=== PATIENT | female | born 1940 | race Caucasian/White ===

== ENCOUNTER 2016-08-01 17:20 | Inpatient (IN) ==
[2016-08-01] MEDS ORDERED: DILAUDID IV ONE (18:27)
[2016-08-01] MEDS ORDERED: ZOFRAN IV ONE ×2 (18:32→20:30)
--- NOTE | 2016-08-01 18:33 | PROVIDER DOCUMENTATION ---
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 States she was getting out of the bed and lost balance, falling, landing on the right hip and hitting the right head. Most pain in the right hip, but has a minor headache and neck pain. Denies loc, not on any blood thinners. Denies abdominal pain, n/v /d. pain in the right hip is severe and is not able to move the right leg. Review of Systems - Adult - REVIEW OF SYSTEMS - ADULT Constitutional: reports: no symptoms reported. denies: chills, fever, fatique Eyes: reports: no symptoms reported. denies: decreased vision, blurred vision, double vision, eye pain Ears, Nose, Mouth & Throat: reports: no symptoms reported. denies: ear pain, nose pain, throat pain Cardiovascular: reports: no symptoms reported. denies: chest pain, palpitations Respiratory: reports: no symptoms reported. denies: cough, shortness of breath , wheezing Gastrointestinal: reports: no symptoms reported. denies: abdominal pain, diarrhea, nausea, vomiting Genitourinary: reports: no symptoms reported. denies: dysuria, discharge, frequency, incontinence Musculoskeletal: reports: see HPI, bone pain, back pain, joint pain, muscle aches Integumentary: reports: no symptoms reported. denies: rash Neurological: reports: no symptoms reported. denies: headache/migraines Psychiatric: reports: no symptoms reported Endocrine: reports: no symptoms reported Hematologic/Lymphatic: reports: no symptoms reported Allergic/Immunologic: reports: no symptoms reported All Other Systems: Reviewed and Negative Past History - Adult - PAST MEDICAL HISTORY-ADULT Review of Records: reports: Old Records Reviewed, Nursing Assessment Review, Medications Reviewed Major Childhood Illnesses: reports: denies history Cardiovascular: reports: HTN Respiratory: reports: denies history Gastrointestinal: reports: denies history Obstetrical/Gynecological: reports: denies history Genitourinary: reports: denies history Musculoskeletal: reports: fibromyalgia Neurological: reports: denies history Psychiatric: reports: depression Endocrine/Immune: reports: denies history Other Conditions: reports: denies history - PRIOR SURGERIES/PROCEDURES Surgical/Procedure History: reports: hysterectomy - IMMUNIZATION STATUS Childhood Immunizations: See Nurse Assessment Flu Vaccine: See Nurse Assessment - FAMILY HISTORY Family History: reviewed, not pertinent - SOCIAL HISTORY Smoking: denies Substance Use: none/never Alcohol Use Frequency: never Physical Exam-Injury Related - Physical Exam-Injury Related Initial Vital Signs Reviewed: Yes General Appearance: appears well, alert, mild distress Eyes: PERRL/EOMI, pink conjunctivae Head, Ears, Nose, Mouth & Throat: normocephalic/atraumatic, moist mucous membranes, normal ENT inspection Neck: non-tender, full range of motion, supple, normal inspection. negative: C- spine tenderness Respiratory: chest non-tender, lungs clear, normal breath sounds, no pleuratic chest pain, no respiratory distress, no accessory muscle use. negative: respiratory distress, decreased breath sounds, accessory muscle use, crackles, rales, rhonchi, stridor, wheezing Cardiovascular: normal peripheral pulses, regular rate, rhythm Peripheral Pulses: radial (R): 2+, radial (L): 2+, dorsalis-pedis (R): 2+, dorsalis-pedis (L): 2+ Abdominal Exam: normal bowel sounds, non tender, soft, no organomegaly, no pulsatile mass. negative: abdominal bruit, abnormal bowel sounds, distended, guarding, rigid, rebound, tenderness Extremity: tenderness, other (Right hip ttp, in pelvic binder from EMS) Neurologic: grossly normal, no motor/sensory deficits Psych/Mental Status: normal mood/affect, normal thought content, normal thought process, oriented x 3 - Glascow Coma Score Best Eye Response ([place]): (4) open spontaneously Best Verbal Response ([place]): (5) oriented Best Motor Response ([place]): (6) obeys commands Progress - PLAN OF CARE/RESULTS Progress/Plan/Lab Results: Vital Signs - 8 hr 08/01/16 17:34 08/01/16 17:47 08/01/16 17:58 Temperature 98.9 F Pulse Rate 87 85 Respiratory Rate 18 18 Blood Pressure 173/67 173/67 165/87 O2 Sat by Pulse Oximetry 95 95 97 08/01/16 18:42 08/01/16 21:36 Temperature Pulse Rate 78 Respiratory Rate Blood Pressure 175/95 145/78 O2 Sat by Pulse Oximetry 93 L Laboratory Results - last 24 hr 08/01/16 08/01/16 08/01/16 17:50 20:23 20:43 WBC Cancelled RBC Cancelled Hgb Cancelled Hct Cancelled MCV Cancelled MCH Cancelled MCHC Cancelled RDW Std Deviation Cancelled Plt Count Cancelled MPV Cancelled Immature Gran % (Auto) Cancelled Neut % (Auto) Cancelled Lymph % (Auto) Cancelled [place] % (Auto) Cancelled Eos % (Auto) Cancelled Baso % (Auto) Cancelled Immature Gran # (Auto) Cancelled Neut # (Auto) Cancelled Lymph # (Auto) Cancelled [place] # (Auto) Cancelled Eos # (Auto) Cancelled Baso # (Auto) Cancelled Corrected WBC (Man) Cancelled POC Glucose 115 H Urine Source CATH Urine Color YELLOW Urine Turbidity CLEAR Urine pH 6.5 Ur Specific [place] 1.021 Urine Protein TRACE A Ur Glucose (Stick) NEGATIVE Ur Ketones (Stick) NEGATIVE Urine Blood NEGATIVE Urine Nitrite NEGATIVE Urine Bilirubin NEGATIVE Urobilinogen Dipstick NORMAL Urine Leukocytes NEGATIVE Urine WBC (Auto) <10 Urine RBC (Auto) <10 U Epithel Cells (Auto) <10 Urine Bacteria (Auto) NEGATIVE Orders Category Date Time Status FSBS [Finger Stick Blood Sugar (ED)] DIRECTED Care 08/01/16 17:53 Active Mckeon Cath Insertion ORDERED Care 08/01/16 19:45 Active HEAD/C-SPINE W/O CONTRAST [CT] Stat Exams 08/01/16 18:26 Completed LUMBAR SPINE W/O CONTRAST [CT] Stat Exams 08/01/16 18:26 Completed PELVIS W/O CONTRAST [CT] Stat Exams 08/01/16 18:26 Completed CBC WITH DIFF [HEME] Routine Lab 08/01/16 20:54 Ordered COMPREHENSIVE METABOLIC PANEL [CHEM] Routine Lab 08/01/16 20:54 Ordered PROTIME WITH INR [COAG] Stat Lab 08/01/16 21:57 Ordered PTT [COAG] Stat Lab 08/01/16 21:57 Ordered TYPE & SCREEN [BBK] Stat Lab 08/01/16 21:57 Ordered UA Reflex [URINALYSIS W/POSS RFLX CULT] [URINALYSIS] Lab 08/01/16 20:23 Completed Stat Carbidopa/Levodopa [Sinemet 25/100] Med 08/02/16 09:00 Active 1 each PO BID Cyclobenzaprine [Flexeril] Med 08/02/16 09:00 Active 10 mg PO TID Donepezil [Aricept] Med 08/02/16 09:00 Active 10 mg PO DAILY Escitalopram [Lexapro] Med 08/02/16 09:00 Active 20 mg PO DAILY Hydromorphone [Dilaudid] Med 08/01/16 18:27 Discontinued 1 mg IV NOW ONE Meclizine [Antivert] Med 08/02/16 21:00 Active 25 mg PO QHS Melatonin Med 08/02/16 21:00 Active 10 mg PO QHS Ondansetron [Zofran] Med 08/01/16 18:32 Discontinued 4 mg IV NOW ONE Ondansetron [Zofran] Med 08/01/16 20:30 Discontinued 4 mg IV NOW ONE EKG [EKG] Stat Ther 08/01/16 17:52 Ordered Transfer/Admit Order [TRANSFER] Routine Transfer 08/01/16 21:41 Ordered Result Diagrams: 08/01/16 20:43 - CT/MRI 1 CT Study: Cervical Spine, Head Impression: Normal (NAD per radiology), See EMR Report 2 CT Study: Lumbar Spine Impression: Normal (NAD per radiology) 3 CT Study: Pelvis Impression: Abnormal (right femoral neck fracture with old sacral insufficiency fractures. per Dr. Scott, radiology) - CONSULTS/PCP/HOSPITALIST Notification #1 *Consult/PCP/Hospitalist*: Dr. Khan, [facility] Time Discussed: 20:14 Reason/Comments: right femoral neck fracture, pelvic insufficiency fractures Consult Disposition: Admit (admit to hospitalist, will pass off care to DOC in the morning) #2 Consult: Dr. Lazcano, hospitalist Time Discussed: 20:19 Reason/Comments: right femoral neck fracture Consult Disposition: Admit (Admit, Dr. Mccarthy is PCP) Departure - Departure Time of Disposition Decision: 19:50 DIAGNOSIS: Femoral neck fracture Qualifiers: Encounter type: initial encounter Fracture type: closed Laterality: right Qualified Code(s): S72.001A - Fracture of unspecified part of neck of right femur, initial encounter for closed fracture Disposition: ADMITTED INPATIENT 09 Certified Medical Emergency: Emergent Condition: Stable Referrals and Follow-Ups: Joanne Mccarthy MD [Primary Care Provider] - Attestation - Physician/ KEYSHAWN Attestation Patient care was provided by Advanced Practice Provider:: Yes Advanced Practice Provider:: Brittaney Celestin Advanced Practice Provider documentation review:: The Mid-level provider documentation, treatment plan and medical decision making was reviewed by the physician who agrees with all treatment and medical decision making by the MLP.
--- NOTE | 2016-08-01 20:07 | Diag Imaging Result Document ---
PROCEDURE NAME: HEAD/C-SPINE W/O CONTRAST - 08/01/2016 CT OF THE HEAD WITHOUT CONTRAST: FINDINGS: There is no evidence of mass effect, bleed, or abnormal extra-axial fluid collection. Compared to 01/13/2016, there has been no significant change in the appearance of the brain. The visualized paranasal sinuses are clear. There is no evidence of acute bony abnormality. IMPRESSION: No evidence of acute intracranial disease. CT OF THE CERVICAL SPINE WITHOUT CONTRAST.: FINDINGS: There is no evidence of prevertebral soft tissue swelling, fracture or subluxation. The facets appear to be well aligned. There is some facet arthropathy at the C2-3 level on the left. There is narrowing of the intervertebral disk at C5-6. There is curvature of the cervical spine with convexity to the right. There is bilateral apical pleural thickening. IMPRESSION: No evidence of acute bony disease.
--- NOTE | 2016-08-01 20:08 | Diag Imaging Result Document ---
PROCEDURE NAME: LUMBAR SPINE W/O CONTRAST - 08/01/2016 CT OF THE LUMBAR SPINE: FINDINGS: There is some disk space narrowing and posterior disk bulge at L3-4. There is accentuated lordosis of the lumbar spine. There are severe hypertrophic facet changes at the L3-4 level bilaterally. No evidence of acute fracture or subluxation is present. There is fibrosis and/or atelectasis in both lung bases. IMPRESSION: No evidence of acute bony disease.
--- NOTE | 2016-08-01 20:09 | Diag Imaging Result Document ---
PROCEDURE NAME: PELVIS W/O CONTRAST - 08/01/2016 CT OF THE BONY PELVIS: FINDINGS: There is evidence of a chronic insufficiency fracture of the left sacral ala with some sclerosis and there is probably also a similar fracture on the right side, also with sclerosis anteriorly and inferiorly near the sacroiliac joint. There is a right femoral neck fracture. IMPRESSION: 1. Osteoporosis with probable old sacral insufficiency fractures. 2. Right femoral neck fracture.
[2016-08-01 20:52] LABS: URINE CULTURE NEEDED? NO; URINE MICRO REVIEW NEEDED? NO
[2016-08-01 21:01] LABS: BILIRUBIN URINE NEGATIVE (NEGATIVE); BLOOD URINE NEGATIVE (NEGATIVE); COLOR YELLOW; GLUCOSE URINE NEGATIVE (NEGATIVE); LEUKOCYTES URINE NEGATIVE (NEGATIVE); NITRITE URINE NEGATIVE (NEGATIVE); PH URINE 6.5; PROTEIN URINE TRACE mg/dL (NEGATIVE); SP GRAVITY URINE 1.021; TURBIDITY URINE CLEAR (CLEAR); UR EPITHELIAL CELLS <10 /HPF (<10); URINE BACTERIA NEGATIVE /HPF; URINE RBC <10 /HPF (<10); URINE WBC <10 /HPF (<10); UROBILINOGEN URINE NORMAL (NORMAL)
[2016-08-01 21:02] LABS: URINE SOURCE CATH
[2016-08-01 22:45] LABS: BASO% 0.1 % (0.0-0.8); EOS# 0.08 X1000 (0.0-0.7); EOS% 0.7 % (0.0-10.0); HEMOGLOBIN 12.7 g/dL (12.0-16.0); IMM GRAN# 0.02 X1000 (0.0-0.04); IMM GRAN% 0.2 % (0.0-0.5); LYMPH# 0.65 X1000 (1.2-3.4); LYMPH% 5.3 % (20.5-51.1); MANUAL DIFF NEEDED? YES; MCH 30.2 PG (27-31); MCHC 34.3 g/dL (33-37); MCV 87.9 FL (81-99); MONO# 0.58 X1000 (0.11-0.59); MONO% 4.7 % (1.7-9.3); MPV 10.7 FL (7.4-10.4); PLT 280 X1000 (130-400); RBC 4.21 XMIL (4.2-5.4)
--- NOTE | 2016-08-01 22:47 | HISTORY AND PHYSICAL ---
This dictation is for Dr. Freddie Lazcano hospitalist. PRIMARY CARE PROVIDER: Dr. Sterlign Mccarthy. CHIEF COMPLAINT: Fall with hip injury. HISTORY OF PRESENT ILLNESS: A 75-year-old female, who is on [facility], has Parkinson's and dementia, was getting out of bed, lost her balance and fell landing on her right hip and also hitting her head. She has the most pain in the right hip, minor headache and some neck pain on arrival. Denies loss of consciousness. Is not any type of blood thinners. The patient also is oriented only to person, related to her dementia. Daughter is at bedside, but she is a poor historian. A CT of her head was read as NAD, lumbar spine NAD, and pelvis showed a right femoral neck fracture. Dr. Khan from [facility] was consulted, and we will admit the patient to the surgical floor for further evaluation and treatment. PAST MEDICAL HISTORY: 1. Parkinson's. 2. Dementia. 3. Anxiety. 4. Fibromyalgia. 5. Rheumatoid arthritis. 6. Sjgren's syndrome. 7. Temporomandibular joint disease. 8. Mild carotid artery disease. PREVIOUS SURGICAL HISTORY: 1. Tonsillectomy in 1969. 2. Oral surgery with bone graft in 1986. 3. Benign cyst of the right breast in 1986. 4. Hysterectomy in 1989. SOCIAL HISTORY: Lives at home with her of 35 years, has 1 daughter at the bedside. Did apparently use tobacco and alcohol, but has not in the past 35 years. No illicit drug use. FAMILY HISTORY: The patient has a sister with high blood pressure. Brother who from a cerebral hemorrhage at age 49. Her mother at age 87 of a CVA. ALLERGIES: Sulfa and phenobarbital. HOME MEDICATIONS: 1. Lexapro 20 mg p.o. daily. 2. Meclizine 25 mg p.o. at bedtime. 3. Protonix 40 mg p.o. daily. 4. Melatonin 2 mg p.o. at bedtime. 5. Aricept 10 mg p.o. daily. 6. Flexeril 10 mg p.o. t.i.d. 7. Carbidopa levodopa 25/100. 8. Aleve 220 p.o. q.6 p.r.n. 9. Tylenol 1000 mg p.o. q.6 p.r.n. REVIEW OF SYSTEMS: Fourteen point review of systems unable to be obtained, related to the patient's mental status. She does have complaint of right hip pain. Denies all other symptoms. PHYSICAL EXAMINATION: VITAL SIGNS: Chronic vent temp 98.9, pulse 94, respirations 18, blood pressure 145/78, oxygen saturation 97% on room air. GENERAL: Chronically ill-appearing 75-year-old female, lying in the ER stretcher, oriented only to person. Daughter is at bedside. HEENT: Head is atraumatic, normocephalic. Pupils equal, round, reactive to light. Extraocular eye movement is intact. Sclerae is anicteric. Conjunctivae is not pale. Oral mucosa is dry. NECK: Supple. No JVD. No thyromegaly. Trachea is midline. No cervical lymphadenopathy. CARDIAC: S1-S2 appreciated. Regular rate. No murmurs, gallops or rubs. LUNGS: Clear to auscultation bilaterally. No rhonchi, wheezes or rales. Symmetrical rise and fall of respirations. ABDOMEN: Soft, nondistended, nontender. Bowel sounds present in all 4 quadrants, normoactive. No pulsatile mass. No organomegaly. EXTREMITIES: No clubbing, cyanosis, or edema. Has 2+ pedal pulses. The bilateral lower extremities are neurovascularly intact. Patient is able to wiggle toes on both lower extremities. NEUROLOGIC: Oriented only to person. She moves all extremities, except for the right lower extremity, which is mildly shorter and somewhat externally rotated. No focal deficits noted. GENITOURINARY: Mckeno catheter in place, otherwise deferred. SKIN: Warm, dry and intact. No rashes noted. DIAGNOSTIC DATA: 1. CT of the head, NAD, CT of the C-spine NAD, CT of the pelvis shows a right femoral neck fracture with old sacral insufficiency fractures, per Dr. Scott in Radiology. LABORATORY DATA: Apparently labs were hemolyzed, and have had to be collected 2 times. There is still no laboratory data available, except for a point of care glucose, which is 115, and a urine which is unremarkable. ASSESSMENT AND PLAN: 1. Right femoral neck fracture. Dr. Khan has been consulted with orthopedics. We will defer to Kye dallas's traction orders. We will treat pain with morphine 2 mg IV q.3 hours. 2. Parkinson's, aware. We will continue home medications. 3. Dementia, we will continue home medications. 4. Recent falls, aware. 5. Sjgren's syndrome, aware. ADDITIONAL ORDERS: Type and screen have been ordered, as well as, coagulation studies, which are still pending. We will review laboratory data when available. Zofran as needed for nausea. SCD hose and NAJMA hose for VT prophylaxis. Further recommendations per patient clinical course. Dictated by DESEAN Guadalupe for Freddie Lazcano MD cc: MD Freddie Granado MD
[2016-08-01 22:53] LABS: AGAP 16; ALBUMIN 3.5 g/dL (3.5-5.0); ALKALINE PHOSPHATASE 62 U/L (32-104); BUN 17 mg/dL (8-22); CHLORIDE 97 mmol/L (98-107); COSMO 270; GOT 37 U/L (10-30); GPT 22 U/L (10-36); POTASSIUM 5.6 mmol/L (3.5-5.1); SODIUM 133 mmol/L (136-145); TCO2 20 mmol/L (25-35); TOTAL BILIRUBIN 0.47 mg/dL (0.20-1.00); TOTAL PROTEIN 7.6 g/dL (6.3-8.3)
[2016-08-01 22:54] LABS: BANDS 6 % (0-1); LYMPHS 4 % (21-51); MONO 6 % (1-9)
[2016-08-01 23:03] LABS: PROTIME 10.5 Seconds (9.2-11.7); PTT 26.5 Seconds (22.0-36.0)
[2016-08-02] MEDS: NS 1,000 ML IV SCH ×3 (01:12→19:38)
[2016-08-02] MEDS: PROTONIX IV SCH ×2 (01:12→22:19)
[2016-08-02] MEDS: MORPHINE IV PRN ×3 (01:13→09:21)
[2016-08-02 05:52] LABS: BASO% 0.1 % (0.0-0.8); EOS# 0.06 X1000 (0.0-0.7); EOS% 0.7 % (0.0-10.0); HEMATOCRIT 37.4 % (37.0-47.0); IMM GRAN# 0.02 X1000 (0.0-0.04); IMM GRAN% 0.2 % (0.0-0.5); LYMPH% 9.3 % (20.5-51.1); MANUAL DIFF NEEDED? YES; MCH 30.7 PG (27-31); MCHC 34.8 g/dL (33-37); MCV 88.2 FL (81-99); MONO# 0.28 X1000 (0.11-0.59); MONO% 3.3 % (1.7-9.3); MPV 9.8 FL (7.4-10.4); NEUT% 86.4 % (42.2-75.2); PLT 270 X1000 (130-400); RBC 4.24 XMIL (4.2-5.4)
--- NOTE | 2016-08-02 05:57 | EKG Report ---
Test Performed on : 08/01/2016 5:55:21 PM Test Reason : FALL Blood Pressure : / mmHG Vent. Rate : 084 BPM Atrial Rate : 084 BPM P-R Int : 132 ms QRS Dur : 074 ms QT Int : 384 ms P-R-T Axes : 083 063 071 degrees QTc Int : 453 ms Normal sinus rhythm. Normal ECG When compared with ECG of 13-JAN-2016 11:31, premature atrial complexes. are no longer present Unconfirmed Result
[2016-08-02 06:09] LABS: EOS 2 % (1-10); LYMPHS 6 % (21-51); MONO 2 % (1-9)
[2016-08-02 06:18] LABS: AGAP 14; BUN 16 mg/dL (8-22); CALCIUM 9.6 mg/dL (8.8-10.2); CHLORIDE 98 mmol/L (98-107); COSMO 271; POTASSIUM 4.6 mmol/L (3.5-5.1); SODIUM 134 mmol/L (136-145); TCO2 22 mmol/L (25-35)
--- NOTE | 2016-08-02 08:17 | Diag Imaging Result Document ---
PROCEDURE NAME: CHEST-1 VIEW - 08/02/2016 AP PORTABLE CHEST, 08/02/2016 AT 0555 HOURS: FINDINGS: There is atelectasis in the left costophrenic angle region. Otherwise, the lungs are clear and the heart and pulmonary vascularity are within normal limits. There is an apparent old fracture in the lateral 6th rib on the left and the lateral 9th rib on the right. These were probably also demonstrated on CT on 08/01/2016. IMPRESSION: No acute disease.
[2016-08-02] MEDS ORDERED: LEXAPRO PO SCH (09:00)
[2016-08-02] MEDS: ARICEPT PO SCH (09:16)
[2016-08-02] MEDS: SINEMET 25/100 PO SCH ×2 (09:16→22:20)
[2016-08-02] MEDS: LEXAPRO PO SCH (09:16)
[2016-08-02] MEDS: FLEXERIL PO SCH ×3 (09:18→17:04)
--- NOTE | 2016-08-02 09:39 | PROGRESS NOTE ---
DATE: 08/02/2016 SUBJECTIVE: This is a 75-year-old white female admitted to the hospital and she was under the care of hospice. A patient of Dr. Plummer, basically on palliative care with deconditioning, dementia, and Parkinson's disease. Apparently, she fell at home sustaining injury to the right hip and the sacral area. The patient was diagnosed after workup in the ER with a right femoral neck fracture and sacral insufficiency fracture. She was admitted to my service by hospitalist. The patient was examined on the floor and the daughter was there at the bedside. REVIEW OF SYSTEMS: The patient denies any complaints.HEENT: No headache. No vision problem. Neck: No neck pain. Cardiopulmonary: No chest pain, shortness of breath, paroxysmal nocturnal dyspnea, or orthopnea. Gastrointestinal: No nausea, vomiting, or abdominal pain. Mckeon catheter was placed. Complains of pain in the right hip and the back. PAST MEDICAL HISTORY: Was reviewed. Parkinson disease, dementia, and Sjogren's syndrome. MEDICATIONS: Sinemet 1 tablet p.o. b.i.d., Flexeril 10 t.i.d., Aricept 10 daily, Lexapro 20 daily, melatonin 10 daily, morphine 2 mg every 3 hours, IV fluids, Protonix 40 mg IV daily. ALLERGIES: Reported to sulfa and phenobarbital. PHYSICAL EXAMINATION: Vital Signs: Temperature is 98 degrees, pulse is 86, blood pressure is 150/62, 5 feet, 118 pounds. HEENT: Atraumatic, normocephalic. Pupils equal, reactive to light. Tongue is in midline. Neck: Supple. Jugular venous distention is normal. Chest: Clear to auscultation. Heart: Sounds are regular. No murmur. Abdomen: Belly is soft, scaphoid. The patient has been in diapers. Mckeon was placed. Right leg is obviously shortened and interested outwards and no obvious tremor noted. No obvious deficits seen. INVESTIGATIONS: White cell count 8.5, hematocrit 37, platelet 270,000, and PT 10, INR 1.0. SMA 7: Sodium 134, potassium 4.6, chloride 98, BUN 16, creatinine 0.7. Glucose 135, calcium 9.6. Urinalysis is clear. RADIOLOGY PROCEDURES: 1. Chest x-ray no acute disease. Old lateral 6th rib fracture. 2. Pelvic CT osteoporosis with old sacral insufficiency fracture, right femoral neck fracture. 3. CT head no evidence of acute intracranial disease. 4. CT of the C-spine no evidence of acute bony disease. 5. Echocardiography report normal sinus. Nothing acute. ASSESSMENT AND PLAN: 1. Right femoral neck fracture. Pain controlled and Dr. Amor was consulted operating for this afternoon. 2. Parkinson disease on Sinemet. 3. Dementia on Aricept. 4. Depression on Lexapro. 5. Continue IV fluids. 6. Gastrointestinal prophylaxis with IV Protonix. Once again, thanks for Dr. Amor's consulted and will follow up on postoperative care. Discussed with the patient at the bedside. DOCUMENTATION TIME: Around 35 minutes. cc: Chavo Mccarthy MD
--- NOTE | 2016-08-02 10:28 | CONSULTATION ---
DATE OF CONSULTATION: 08/02/2016 CONSULTING PHYSICIAN: Dr. Mccarthy. REASON FOR CONSULT: Right hip fracture. HISTORY OF PRESENT ILLNESS: Ms. Morales is a 75-year-old white female with a history of multiple medical problems. She took a fall at home, landing on her right side, immediately having right hip pain. She was brought to the emergency department where images were obtained which showed a right-sided hip fracture. We were asked to evaluate the patient for surgical intervention. PAST MEDICAL HISTORY: Parkinson disease, dementia, anxiety, fibromyalgia, rheumatoid arthritis, Sjogren's syndrome, TMJ, carotid artery disease. SURGICAL HISTORY: Tonsillectomy, oral surgery, right breast cyst removed, hysterectomy. FAMILY HISTORY: Mother and brother from CVA. SOCIAL HISTORY: She is . She lives with her . She denies using tobacco and alcohol. HOME MEDICATIONS: Lexapro 20 mg p.o. daily, meclizine 25 mg p.o. at bedtime, Protonix 40 mg p.o. daily, melatonin 5 mg p.o. at bedtime, Aricept 10 mg p.o. daily, Flexeril 10 mg p.o. t.i.d. carbidopa levodopa 25/100 one p.o. b.i.d., Aleve 220 mg p.o. q.6 hours p.r.n., Tylenol 1 g p.o. q.6 hours p.r.n. ALLERGIES: Sulfa and phenobarbital. PRIMARY CARE PROVIDER: Dr. Mccarthy. REVIEW OF SYSTEMS: A 10 point review of systems were perform. The patient answered negative all except for what was mentioned above in the history of present illness. PHYSICAL EXAMINATION: General: The patient is awake, lying in bed. Her family member at her bedside. She had difficulty answering questions and very slow to respond. HEENT: Head is normocephalic, atraumatic. Pupils equal, round, reactive to light. Nares patent. Throat without exudate. Cardiac: S1, S2 auscultated. Systolic murmur which is 2/6 auscultated. Pulmonary: Lungs clear to auscultation bilaterally in all lung tafoya. GI: Abdomen is soft, nontender, nondistended. Bowel sounds present in all quadrants. Genitourinary: Not examined. Neurological: The patient has good sensation and is neurologically intact. Cranial nerves 2 through 12 are grossly intact. Musculoskeletal: Physical examination of the right hip reveals right hip pain with palpation as well as passive range of motion. IMPRESSION: Right femoral neck fracture. PLAN: Right bipolar hemiarthroplasty. The risks, benefits, and alternatives of the surgery were discussed with the patient including the risk of anesthesia, bleeding, damage to blood vessels, infection, damage to nerves, tendons, ligaments, and other imponderables. The patient agreed to proceed with surgery at this time. Her was involved in this discussion as well and he agrees as well for her to have the procedure. Dictated by DESEAN Hoyt for Alex Amor MD cc: DESEAN Hoyt MD Jagan Reddy, MD
[2016-08-02] MEDS ORDERED: KEFZOL 1 GM/D5W 1 GM/50 ML IVPB IV ONE (11:18)
[2016-08-02] MEDS ORDERED: SODIUM CHLORIDE 0.9% ONE (12:29)
[2016-08-02] MEDS ORDERED: DURAMORPH ONE (12:29)
[2016-08-02] MEDS ORDERED: MARCAINE 0.25% PF/EPI 1:200,000 ONE (12:29)
[2016-08-02] MEDS ORDERED: TORADOL ONE (12:29)
[2016-08-02] MEDS ORDERED: EXPAREL 1.3% ONE (12:30)
[2016-08-02] MEDS ORDERED: CYKLOKAPRON 1,000 MG/NS 1,000 MG/100 ML IVPB ONE (12:30)
[2016-08-02] MEDS ORDERED: CLAVE SECONDARY SET 11953 ONE ×2 (12:30→12:32)
[2016-08-02] MEDS ORDERED: NEOSPORIN G.U. IRRIGANT ONE (12:30)
[2016-08-02] MEDS ORDERED: KEFZOL 2 GM/D5W 0 GM/0 ML IVPB ONE (12:32)
[2016-08-02] MEDS ORDERED: KEFZOL 1 GM/D5W 1 GM/50 ML IVPB ONE (12:41)
[2016-08-02] MEDS ORDERED: DIPRIVAN 1% ONE (13:20)
[2016-08-02] MEDS ORDERED: FENTANYL ONE (14:45)
[2016-08-02] MEDS ORDERED: ZOFRAN ONE (15:01)
[2016-08-02] MEDS ORDERED: XYLOCAINE-MPF 2% ONE (15:02)
[2016-08-02] MEDS ORDERED: LR 2,000 ML ONE (15:03)
--- NOTE | 2016-08-02 15:39 | OPERATIVE NOTE ---
PROCEDURE DATE: 08/02/2016 PREOPERATIVE DIAGNOSIS: Right displaced femoral neck fracture. POSTOPERATIVE DIAGNOSIS: Right displaced femoral neck fracture. PROCEDURE: Right hip bipolar hip hemiarthroplasty using a [employer] size 10.5 stem with a +7 femoral neck, a size 28 mm head, and a 45 mm bipolar head. ANESTHESIA: General. SURGEON: Alex Amor MD PRINCIPAL STATISTICAL SCIENTIST: 1. Nancy 2. DESEAN Hoyt COMPLICATIONS: None. BLOOD LOSS: Minimal. DESCRIPTION OF PROCEDURE: The patient was brought to the operative suite and placed in supine position. After successful administration of general anesthesia, the patient was placed in the left lateral decubitus position with the right hip up. The right hip was then prepped and draped in the usual sterile fashion. Using the posterior approach to the hip, it was dissected sharply through the skin down to the gluteus muscle. The gluteus muscle was incised down to the bursa. The bursa was incised exposing the piriformis tendon. The piriformis tendon was tagged and then an L-capsulotomy was performed, exposing the femoral neck. A femoral neck cut was made with the oscillating saw. The femoral head was removed with power corkscrew. The head was measured at 45 mm. A 45 mm trial was found to be stable. Attention was then directed to the femur. Using the entry broach, the T-handle reamer, lateralizing reamer, and serially broaching to a size 10.5. A 10.5, +7 stem was trialed with a 45 mm bipolar found to be stable. The trial was removed. The definitive stem was locked onto the femur. Once it was well seated, the Dc taper was cleaned and a 28 mm +7 neck length head was locked onto the Dc taper and then the a 45 mm bipolar was locked onto the 28 mm head. The hip was then reduced. It was found to be stable. The superior limb of the L-capsulotomy was performed with interrupted #2 FiberWire. The posterior limb was repaired through drill holes in the greater trochanter. The short external rotators were also repaired through drill holes in the greater trochanter with FiberWire suture. The gluteus fascia was closed with 0 Vicryl. Prior to closing, the gluteus fascia the hip was copiously infiltrated with Exparel, including anterior capsule, posterior capsule, the posterior musculature and subcutaneous tissue. The skin edges were approximated with 2-0 Vicryl. Skin was closed with skin kristina and a sterile dressing was applied. The patient tolerated the procedure well without complication. At the end of the procedure all counts correct x2. The patient was transferred to the recovery room in stable condition. cc: MD Chavo Edward MD
[2016-08-02] MEDS ORDERED: MILK OF MAGNESIA PO PRN (17:30)
[2016-08-02] MEDS ORDERED: AMBIEN PO PRN (17:30)
[2016-08-02] MEDS ORDERED: ZOFRAN IV PRN (17:30)
[2016-08-02] MEDS ORDERED: MORPHINE IV PRN (17:30)
[2016-08-02] MEDS: TYLENOL PO SCH ×2 (17:32→22:36)
[2016-08-02] MEDS: ULTRAM PO SCH (17:34)
[2016-08-02] MEDS ORDERED: CYKLOKAPRON 1,000 MG in NS 100 ML IV ONE (19:15)
[2016-08-02] MEDS: KEFZOL 1 GM/D5W 1 GM/50 ML IVPB IV SCH (19:38)
--- NOTE | 2016-08-02 21:11 | Diag Imaging Result Document ---
PROCEDURE NAME: HIP 1 VIEW RIGHT - 08/02/2016 STUDY: Portable AP right hip single view. The patient has undergone recent orthopedic replacement of the right hip. There are lateral skin kristina. No fracture or dislocation. The femoral head component is well positioned in the acetabulum. IMPRESSION: Recently replaced right hip.
[2016-08-02] MEDS: SODIUM CHLORIDE 0.9% INJ SCH (22:19)
[2016-08-02] MEDS: ANTIVERT PO SCH (22:20)
[2016-08-02] MEDS: CELEBREX PO SCH (22:20)
[2016-08-02] MEDS: PERIDEX MT SCH (22:21)
[2016-08-02] MEDS: LYRICA PO SCH (22:21)
[2016-08-02] MEDS: COLACE PO SCH (22:22)
[2016-08-02] MEDS: OXY IR PO PRN (22:36)
[2016-08-03] MEDS: NS 1,000 ML IV SCH ×3 (01:09→09:56)
[2016-08-03] MEDS: PROTONIX IV SCH (01:10)
[2016-08-03] MEDS: MELATONIN PO SCH (01:10)
[2016-08-03] MEDS: ULTRAM PO SCH ×4 (01:11→16:37)
[2016-08-03] MEDS: KEFZOL 1 GM/D5W 1 GM/50 ML IVPB IV SCH (04:20)
[2016-08-03 05:37] LABS: MANUAL DIFF NEEDED? NO
[2016-08-03 05:52] LABS: BASO% 0.5 % (0.0-0.8); EOS# 0.36 X1000 (0.0-0.7); EOS% 5.7 % (0.0-10.0); HEMOGLOBIN 8.7 g/dL (12.0-16.0); LYMPH# 1.12 X1000 (1.2-3.4); LYMPH% 17.6 % (20.5-51.1); MCHC 33.5 g/dL (33-37); MCV 89.7 FL (81-99); MONO# 0.32 X1000 (0.11-0.59); MPV 9.8 FL (7.4-10.4); NEUT% 71.2 % (42.2-75.2); PLT 186 X1000 (130-400)
[2016-08-03] MEDS: XARELTO PO SCH (06:05)
[2016-08-03] MEDS: TYLENOL PO SCH ×3 (06:05→16:36)
[2016-08-03 06:42] LABS: AGAP 9; BUN 12 mg/dL (8-22); CALCIUM 8.4 mg/dL (8.8-10.2); CHLORIDE 102 mmol/L (98-107); COSMO 267; POTASSIUM 3.9 mmol/L (3.5-5.1); SODIUM 133 mmol/L (136-145); TCO2 22 mmol/L (25-35)
[2016-08-03] MEDS ORDERED: DECADRON IV ONE (09:00)
[2016-08-03] MEDS: ARICEPT PO SCH (09:56)
[2016-08-03] MEDS: PEPCID PO SCH (09:57)
[2016-08-03] MEDS: FLEXERIL PO SCH ×3 (09:57→16:38)
[2016-08-03] MEDS: SINEMET 25/100 PO SCH (09:58)
[2016-08-03] MEDS: LEXAPRO PO SCH (09:59)
[2016-08-03] MEDS: LYRICA PO SCH (09:59)
[2016-08-03] MEDS: PERIDEX MT SCH (10:00)
[2016-08-03] MEDS: CELEBREX PO SCH (10:01)
[2016-08-03] MEDS: COLACE PO SCH (10:02)
--- NOTE | 2016-08-03 13:44 | PROGRESS NOTE ---
DATE: 08/03/2016 SUBJECTIVE: Loan Morales is a 75-year-old female who is postoperative day 1 from a right bipolar hemiarthroplasty. She has no complaints. She was able to get up with physical therapy and sit on the side of the bed today. OBJECTIVE: She is a well-developed, well-nourished female who is alert and cooperative with exam. She responds appropriately. She is somewhat difficult to understand however due to her Parkinson's. Her vital signs are stable. She is afebrile. Her hemoglobin is 8.7, her hematocrit is 26.0%. Her leg is neurovascularly intact. Her dressing is clean, dry, and intact. There is no sign of deep venous thrombosis. ASSESSMENT: Stable postop day 1 visit from a right bipolar hemiarthroplasty. PLAN: We will continue working on physical therapy. I plan on her going to rehab later in the week. cc: MD Chavo Edward MD
--- NOTE | 2016-08-03 18:23 | PROGRESS NOTE ---
DATE: 08/03/2016 SUBJECTIVE: The patient had right hip bipolar hemiarthroplasty done by Dr. Amor. Postop day 1, patient is doing very well. Slightly awake, no complaints. The daughter was at bedside feeding. REVIEW OF SYSTEMS: None reported. OBJECTIVE: Vital signs: Afebrile. Pulse is 98, blood pressure is 160/70, slightly pale. Neck: Supple. Chest: Clear to auscultation. Heart: Sounds are regular. Neurologic: No obvious neurological deficits. INVESTIGATIONS: CBC: White cell count 6.3, hematocrit 26, platelets 186,000. SMA7: Sodium 133, potassium 3.9, chloride 102, CO2 22, BUN 12, creatinine 0.6, glucose 107, calcium 8.4, urinalysis is clear. ASSESSMENT: 1. Postop day 1, status post right bipolar hemiarthroplasty. Doing well. Hematocrit was 26. Tolerating the diet very well. If he is below 25, we will transfuse. 2. Pain controlled with morphine. 3. Deep venous thrombosis prophylaxis with Xarelto 10 mg daily. 4. Gastrointestinal prophylaxis with intravenous Protonix. Check the complete blood count, SMA7 in the morning. 5. If she tolerates the diet, we will decrease the intravenous fluids. DISPOSITION: Discussed with the family who wants to go for short-term rehab. Surgical Dressing Maker consult. cc: Chavo Mccarthy MD
[2016-08-04] MEDS: NS 1,000 ML IV SCH ×3 (01:00→08:01)
[2016-08-04 06:08] LABS: MANUAL DIFF NEEDED? NO
[2016-08-04] MEDS: ANTIVERT PO SCH ×2 (06:10→20:21)
[2016-08-04] MEDS: XARELTO PO SCH (06:10)
[2016-08-04] MEDS: SODIUM CHLORIDE 0.9% INJ SCH (06:10)
[2016-08-04] MEDS: PROTONIX IV SCH (06:10)
[2016-08-04] MEDS: ULTRAM PO SCH ×2 (06:11→07:58)
[2016-08-04] MEDS: TYLENOL PO SCH ×2 (06:11→08:01)
[2016-08-04 06:23] LABS: EOS# 0.02 X1000 (0.0-0.7); EOS% 0.2 % (0.0-10.0); HEMATOCRIT 26.5 % (37.0-47.0); HEMOGLOBIN 8.9 g/dL (12.0-16.0); LYMPH# 0.83 X1000 (1.2-3.4); LYMPH% 10.3 % (20.5-51.1); MCH 29.7 PG (27-31); MCHC 33.6 g/dL (33-37); MCV 88.3 FL (81-99); MONO# 0.55 X1000 (0.11-0.59); MONO% 6.8 % (1.7-9.3); MPV 10.1 FL (7.4-10.4); NEUT% 82.7 % (42.2-75.2); PLT 191 X1000 (130-400)
[2016-08-04 07:04] LABS: AGAP 10; BUN 10 mg/dL (8-22); CALCIUM 8.6 mg/dL (8.8-10.2); CHLORIDE 102 mmol/L (98-107); COSMO 268; POTASSIUM 3.7 mmol/L (3.5-5.1); SODIUM 134 mmol/L (136-145); TCO2 22 mmol/L (25-35)
[2016-08-04] MEDS: CELEBREX PO SCH ×2 (08:00→12:05)
[2016-08-04] MEDS: MELATONIN PO SCH ×2 (08:02→20:20)
[2016-08-04] MEDS: COLACE PO SCH ×3 (08:02→20:21)
[2016-08-04] MEDS: LYRICA PO SCH ×3 (08:02→23:12)
[2016-08-04] MEDS: SINEMET 25/100 PO SCH ×3 (08:02→20:21)
[2016-08-04] MEDS: PERIDEX MT SCH ×2 (08:03→12:07)
[2016-08-04] MEDS ORDERED: VENOFER IV ONE (08:32)
--- NOTE | 2016-08-04 09:04 | PROGRESS NOTE ---
DATE: 08/04/2016 SUBJECTIVE: Postop day 2 status post right hip bipolar hemiarthroplasty. The patient is wide awake. No complaints. Daughter is feeding. REVIEW OF SYSTEMS: No chest pain, shortness of breath. PHYSICAL EXAMINATION: Vital Signs: Stable. Afebrile, blood pressure is 170/70, room air 98%. HEENT Examination: Atraumatic, normocephalic. Pupils equally reactive to light. Neck: Supple. Chest: Clear to auscultation. Heart: Heart sounds are regular. Abdomen: Belly is soft, nontender. Good bowel sounds. Extremities: No edema noted. INVESTIGATIONS: White cell count 8, hematocrit 26.5, platelet count 191,000. SMA 7: Sodium 134, potassium 3.7, chloride 102, BUN 10, creatinine 0.5, glucose 111, calcium 8.6. ASSESSMENT AND PLAN: 1. Postoperative day 2, bipolar hemiarthroplasty. Doing very well and tolerating the diet very well. Discontinue intravenous fluids. Discontinue Mckeon. 2. Anemia due to blood loss, not critical. We will give iron infusion followed by Icar-C Plus. 3. Disposition. jail placement for rehabilitation. Check the CBC in the morning and continue present postoperative care with the deep venous thrombosis prophylaxis with Xarelto. We will follow up. cc: Chavo Mccarthy MD
[2016-08-04] MEDS ORDERED: VENOFER 300 MG in NS 250 ML IV ONE (10:00)
[2016-08-04] MEDS: LEXAPRO PO SCH (12:05)
[2016-08-04] MEDS: PEPCID PO SCH (12:05)
[2016-08-04] MEDS: ARICEPT PO SCH (12:06)
[2016-08-04] MEDS: ICAR-C PLUS PO SCH (12:24)
[2016-08-04] MEDS: FLEXERIL PO SCH (12:25)
[2016-08-04] MEDS ORDERED: FLEXERIL PO PRN (12:38)
--- NOTE | 2016-08-04 12:59 | PROGRESS NOTE ---
DATE: 08/04/2016 SUBJECTIVE: Loan Morales is a 75-year-old female who is postoperative day 2 from a bipolar hemiarthroplasty. She has no complaints. Her color is good. She is responding appropriately, but slowly due to her Parkinson's. OBJECTIVE: She is a well-developed, well-nourished female. She is cooperative with exam. Exam of her leg reveals the wound is clean, dry, and intact without sign of infection. Her leg is neurovascularly intact without sign of deep venous thrombosis. ASSESSMENT: Stable right bipolar hemiarthroplasty. PLAN: We will change her dressing today. She will likely go to rehab tomorrow. She will continue her physical therapy. cc: MD Chavo Edward MD
[2016-08-04] MEDS: OXY IR PO PRN (16:11)
[2016-08-04] MEDS: TYLENOL PO PRN (20:21)
[2016-08-04] MEDS: ULTRAM PO PRN (20:21)
[2016-08-05] MEDS: XARELTO PO SCH ×2 (04:16→08:37)
[2016-08-05] MEDS: PROTONIX IV SCH ×2 (04:16→08:37)
[2016-08-05] MEDS: ULTRAM PO PRN (04:16)
[2016-08-05] MEDS: TYLENOL PO PRN (04:18)
[2016-08-05] MEDS: NS 1,000 ML IV SCH ×2 (04:18→08:37)
[2016-08-05] MEDS: ZOFRAN IV PRN ×2 (04:21→11:06)
[2016-08-05 06:02] LABS: MANUAL DIFF NEEDED? NO
[2016-08-05 06:04] LABS: BASO% 0.3 % (0.0-0.8); EOS% 5.4 % (0.0-10.0); HEMATOCRIT 27.8 % (37.0-47.0); HEMOGLOBIN 9.3 g/dL (12.0-16.0); IMM GRAN# 0.04 X1000 (0.0-0.04); IMM GRAN% 0.5 % (0.0-0.5); LYMPH# 1.74 X1000 (1.2-3.4); LYMPH% 23.7 % (20.5-51.1); MCH 29.5 PG (27-31); MCHC 33.5 g/dL (33-37); MCV 88.3 FL (81-99); MONO# 0.46 X1000 (0.11-0.59); MONO% 6.3 % (1.7-9.3); MPV 9.9 FL (7.4-10.4); NEUT% 63.8 % (42.2-75.2); PLT 236 X1000 (130-400); RBC 3.15 XMIL (4.2-5.4)
[2016-08-05] MEDS ORDERED: CELEBREX PO SCH (09:00)
[2016-08-05] MEDS: LEXAPRO PO SCH (09:38)
[2016-08-05] MEDS: COLACE PO SCH ×2 (09:39→22:10)
[2016-08-05] MEDS: ARICEPT PO SCH (09:39)
[2016-08-05] MEDS: PEPCID PO SCH (09:39)
[2016-08-05] MEDS: ICAR-C PLUS PO SCH (09:39)
[2016-08-05] MEDS: LYRICA PO SCH ×2 (09:40→22:09)
[2016-08-05] MEDS: SINEMET 25/100 PO SCH ×2 (09:40→22:09)
--- NOTE | 2016-08-05 14:34 | DISCHARGE SUMMARY ---
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 DISCHARGE MEDICATIONS: See discharge medications. DISPOSITION: The patient was discharged to rehabilitation with instructions for a total hip arthroplasty protocol with hip precautions and fall precautions. Instructed to return for any signs or symptoms of infection, deep venous thrombosis, instructed to remove kristina in 10 days. BRIEF HOSPITAL COURSE: On the day of admission, the patient was admitted for a right displaced right femoral neck fracture. The following day, she underwent a bipolar hemiarthroplasty. Her postoperative course was unremarkable. At discharge, she was afebrile, tolerating a regular diet, ambulating well with Physical Therapy. Her wound was clean, dry and intact without signs of infection. She was discharged to rehabilitation in stable condition with instructions to follow up as described above. cc: MD Chavo Edward MD
[2016-08-05] MEDS: OXY IR PO PRN ×2 (16:52→22:09)
--- NOTE | 2016-08-05 19:41 | PROGRESS NOTE ---
DATE: 08/05/2016 INTERVAL HISTORY: Mckeon was discontinued. IV fluids decreased to 42 an hour. Status post iron infusion. No complaints. Patient able to ambulate with assistance. PHYSICAL EXAMINATION: Vital Signs: Stable. HEENT: Exam within normal limits. Neck: Supple. No lymphadenopathy. Chest: Clear. Heart: Sounds are regular. Abdomen: Belly is soft, nontender. Good bowel sounds. LABORATORIES: CBC: White cell count 7.3, hematocrit 27.8, platelets 237,000. SMA 7 is normal. ASSESSMENT: 1. A 75-year-old white female, status post right hip arthroplasty, stable. 2. Anemia. Stable. 3. Decreased IV fluids. Patient is medically stable to be discharged to the rehab. Discussed with the group social worker. Waiting for placement. If the bed is available will be discharged today or in the morning. Once again, thanks to Dr. Amor for the consult. cc: Chavo Mccarthy MD
[2016-08-05] MEDS: ANTIVERT PO SCH (22:09)
[2016-08-05] MEDS: MELATONIN PO SCH (22:10)
[2016-08-06] MEDS: PROTONIX IV SCH (05:24)
[2016-08-06] MEDS: SODIUM CHLORIDE 0.9% INJ SCH (05:24)
[2016-08-06] MEDS: XARELTO PO SCH (05:25)
[2016-08-06] MEDS: NS 1,000 ML IV SCH ×2 (05:25→09:08)
[2016-08-06 07:46] VITALS: BP 164/66
== END 2016-08-06 09:37 ==
LOC: ED 17:20 → SUATTDRO 23:37 → 4N 23:37
PROVIDERS: ADMIT Internal Medicine; ATTEND Internal Medicine

== ENCOUNTER 2016-08-09 15:16 | Inpatient (IN) ==
[2016-08-09] MEDS ORDERED: LASIX IV ONE (15:35)
[2016-08-09] MEDS ORDERED: ASPIRIN PO STA (16:38)
[2016-08-09 17:02] LABS: BASO% 0.3 % (0.0-0.8); EOS# 0.05 X1000 (0.0-0.7); EOS% 0.4 % (0.0-10.0); HEMATOCRIT 37.6 % (37.0-47.0); HEMOGLOBIN 12.4 g/dL (12.0-16.0); IMM GRAN# 0.06 X1000 (0.0-0.04); IMM GRAN% 0.5 % (0.0-0.5); LYMPH# 0.81 X1000 (1.2-3.4); LYMPH% 6.8 % (20.5-51.1); MANUAL DIFF NEEDED? NO; MCH 29.8 PG (27-31); MCV 90.4 FL (81-99); MONO# 0.61 X1000 (0.11-0.59); MONO% 5.1 % (1.7-9.3); MPV 9.9 FL (7.4-10.4); NEUT% 86.9 % (42.2-75.2); PLT 483 X1000 (130-400); RBC 4.16 XMIL (4.2-5.4)
[2016-08-09 17:08] LABS: INR 1.36; PROTIME 14.6 Seconds (9.2-11.7); PTT 38.2 Seconds (22.0-36.0)
[2016-08-09 17:11] LABS: AGAP 18; ALBUMIN 4.2 g/dL (3.5-5.0); ALKALINE PHOSPHATASE 73 U/L (32-104); BUN 18 mg/dL (8-22); CALCIUM 10.1 mg/dL (8.8-10.2); CHLORIDE 96 mmol/L (98-107); CK PROFILE 55 U/L (24-173); COSMO 283; GOT 39 U/L (10-30); GPT 14 U/L (10-36); MAGNESIUM 2.2 mg/dL (1.5-2.7); SODIUM 140 mmol/L (136-145); TCO2 26 mmol/L (25-35); TOTAL BILIRUBIN 0.74 mg/dL (0.20-1.00); TOTAL PROTEIN 8.9 g/dL (6.3-8.3)
[2016-08-09 17:29] LABS: ALLEN TEST YES; BE 6.2 mmoll (-3.0-3.0); BLOOD TYPE ARTERIAL; DRAW SITE L RADIAL; O2(CT) 15.1 mL/dL (15.0-23.0); PCO2(98.6) 28 mmHg (35-45); PO2(98.6) 193 mmHg (60-100); SAMPLE BLOOD; SAO2 99.5 % (95.0-100.0); THB 10.8 g/dL (11.5-17.4)
[2016-08-09 17:33] LABS: MODALITY NRB
[2016-08-09] MEDS ORDERED: VANCOMYCIN 1 GM/NS 1 GM/250 ML IVPB IV ONE (17:54)
[2016-08-09] MEDS ORDERED: ZOSYN 3.375 GM/NS 3.375 GM/50 ML IVPB IV SCH (18:00)
--- NOTE | 2016-08-09 18:03 | Diag Imaging Result Document ---
PROCEDURE NAME: CHEST-2 VIEWS - 08/09/2016 SITTING FRONTAL AND LATERAL CHEST, TWO VIEWS: FINDINGS: There is a dense infiltrate in the right lower lobe. The left lung is well expanded and clear. The heart is not enlarged. The vessels are not distended. No free air beneath the diaphragm. IMPRESSION: Right lower lobe pneumonia.
--- NOTE | 2016-08-09 18:15 | PROVIDER DOCUMENTATION ---
This chart was entered by Johny Parish Scribe, acting as scribe for Zhao Tee MD. HPI-Respiratory General - General Chief Complaint: Shortness of Breath Stated Complaint: SOB Time Seen by Provider: 08/09/16 15:30 Source: EMS, RN notes reviewed, longterm records Unable to obtain history due to:: altered (due to dementia) Allergies/Adverse Reactions: Patient Allergies Allergy/AdvReac Type Severity Reaction Status Date / Time phenobarbital AdvReac RASH Verified 08/09/16 15:34 Sulfa (Sulfonamide AdvReac RASH Verified 08/09/16 15:34 Antibiotics) Home Medications: Home Medication List Medication Instructions Recorded Confirmed Last Taken Type Escitalopram Oxalate [Lexapro] 20 mg PO DAILY 01/23/14 08/09/16 08/09/16 History Meclizine HCl 25 mg PO QHS 01/23/14 08/09/16 08/08/16 History Carbidopa/Levodopa [Carbidopa-Levo 1 each PO BID 08/01/16 08/09/16 08/09/16 History 25-100 Tab] Donepezil [Aricept] 10 mg PO DAILY 08/01/16 08/09/16 08/09/16 History Melatonin 10 mg PO QHS 08/01/16 08/09/16 08/08/16 History Celecoxib [Celebrex] 200 mg PO DAILY capsule 08/05/16 08/09/16 08/09/16 Rx Docusate Sodium [Colace] 100 mg PO BID capsule 08/05/16 08/09/16 08/09/16 Rx Famotidine [Pepcid] 20 mg PO DAILY tablet 08/05/16 08/09/16 08/09/16 Rx Iron Carbonyl/Vit C/Vit B12/FA 1 each PO DAILY tablet 08/05/16 08/09/16 Rx [Icar-C Plus] Oxycodone I.r. [Oxy Ir] 5 - 10 mg PO Q3H PRN PRN #60 08/05/16 08/09/16 08/06/16 Rx capsule Pregabalin [Lyrica] 75 mg PO BID #60 capsule 08/05/16 08/09/16 08/09/16 Rx Rivaroxaban [Xarelto] 10 mg PO Q24H tablet 08/05/16 08/09/16 08/09/16 Rx Tramadol [Ultram] 50 mg PO Q6H PRN PRN #60 tablet 08/05/16 08/09/16 08/09/16 08: 00 Rx Magnesium Hydroxide [Milk of 30 ml PO EVERY OTHER DAY 08/09/16 08/09/16 History Magnesia] Polyethylene Glycol 3350 [Miralax] 17 gm PO EVERY OTHER DAY 08/09/16 08/09/16 History - History of Present Illness-Resp Nature of Presenting Problem: pt is a 75 y/o F that presents to the ER with shortness of breath. pt is at longterm, she had recent hip surgery and pneumonia. patient has dementia and hard to due complete history and hpi Quality of Pain: reports: none Severity in ED: reports: moderate Onset/Duration: reports: unsure Timing: reports: still present, constant Context: reports: other (recent surgery and RLL pneumonia on 08/09/16) Cough Quality/Degree: reports: no cough Associated Symptoms: reports: shortness of breath, short of breath. denies: fever/chills, flu-like symptoms, nasal congestion, nasal drainage Similar Symptoms Previously?: Yes Recently seen or treated by another doctor?: Yes Review of Systems - Adult - REVIEW OF SYSTEMS - ADULT ROS:: unobtainable per condition Constitutional: reports: other (unable to obtain) Respiratory: reports: shortness of breath All Other Systems: Reviewed and Negative Past History - Adult - PAST MEDICAL HISTORY-ADULT Review of Records: reports: Old Records Reviewed, Nursing Assessment Review, Medications Reviewed Cardiovascular: reports: HTN Gastrointestinal: reports: GERD Musculoskeletal: reports: arthritis (RA), fibromyalgia Neurological: reports: dementia, Parkinson's Psychiatric: reports: depression - PRIOR SURGERIES/PROCEDURES Surgical/Procedure History: reports: hysterectomy - IMMUNIZATION STATUS Childhood Immunizations: See Nurse Assessment Flu Vaccine: See Nurse Assessment - FAMILY HISTORY Family History: reviewed, not pertinent - SOCIAL HISTORY Smoking: non-smoker Living Situation: care facility Physical Exam-General - PHYSICAL EXAM-ADULT Exam Limited by: dementia Initial Vital Signs Reviewed: Yes - CONSTITUTIONAL General Appearance: alert, mild distress - EYES Eyes: PERRL/EOMI, pink conjunctivae - HEAD, EARS, NOSE, MOUTH & THROAT HENMT: normocephalic/atraumatic, moist mucous membranes, normal ENT inspection - NECK Neck: full range of motion, normal inspection - RESPIRATORY Respiratory: no respiratory distress, no accessory muscle use, rales, rhonchi - CARDIOVASCULAR Cardiovascular: no gallop, no murmur, tachycardia - GASTROINTESTINAL (ABDOMEN) Abdominal Exam: normal bowel sounds, non tender, soft, no organomegaly, no pulsatile mass - MUSCULOSKELETAL Extremity: no calf tenderness, normal capillary refill, pedal edema (trace) - SKIN Integumentary: normal color, warm/dry - PSYCHIATRIC Psych/Mental Status: other (dementia) Progress - PLAN OF CARE/RESULTS Progress/Plan/Lab Results: Vital Signs - 8 hr 08/09/16 15:20 08/09/16 17:39 Temperature 98.5 F Pulse Rate 103 H 94 H Respiratory Rate 27 H 24 Blood Pressure 175/80 142/79 O2 Sat by Pulse Oximetry 100 100 Laboratory Results - last 24 hr 08/09/16 08/09/16 08/09/16 15:30 15:30 15:30 WBC 11.93 H RBC 4.16 L Hgb 12.4 Hct 37.6 MCV 90.4 MCH 29.8 MCHC 33.0 RDW Std Deviation 13.4 Plt Count 483 H MPV 9.9 Immature Gran % (Auto) 0.5 Neut % (Auto) 86.9 H Lymph % (Auto) 6.8 L [place] % (Auto) 5.1 Eos % (Auto) 0.4 Baso % (Auto) 0.3 Immature Gran # (Auto) 0.06 H Neut # (Auto) 10.36 H Lymph # (Auto) 0.81 L [place] # (Auto) 0.61 H Eos # (Auto) 0.05 Baso # (Auto) 0.04 PT INR PTT (Actin FS) D-Dimer 2.32 H Specimen Type Sample Site pH pCO2 pO2 HCO3 Base Excess Oxyhemoglobin ABG O2 Sat (Calculated) ABG O2 Saturation ABG Carboxyhemoglobin ABG Methemoglobin Felice Test A-a O2 Difference Total Hemoglobin Lactate Liter Flow Blood Gas Modality FiO2 % Sodium 140 Potassium 4.0 Chloride 96 L Carbon Dioxide 26 Anion Gap 18 BUN 18 Creatinine 0.6 Estimated GFR/1.73 m2 > 60 BUN/Creatinine Ratio 30 Glucose 125 H Calculated Osmolality 283 Calcium 10.1 Magnesium 2.2 Total Bilirubin 0.74 AST 39 H ALT 14 Alkaline Phosphatase 73 Creatine Kinase 55 Troponin T Ckf-Y-Rhcsbeomeoa Pept Total Protein 8.9 H Albumin 4.2 Globulin 4.7 Albumin/Globulin Ratio 0.9 Plasma Lactate 08/09/16 08/09/16 08/09/16 15:30 15:30 15:30 WBC RBC Hgb Hct MCV MCH MCHC RDW Std Deviation Plt Count MPV Immature Gran % (Auto) Neut % (Auto) Lymph % (Auto) [place] % (Auto) Eos % (Auto) Baso % (Auto) Immature Gran # (Auto) Neut # (Auto) Lymph # (Auto) [place] # (Auto) Eos # (Auto) Baso # (Auto) PT 14.6 H INR 1.36 PTT (Actin FS) 38.2 H D-Dimer Specimen Type Sample Site pH pCO2 pO2 HCO3 Base Excess Oxyhemoglobin ABG O2 Sat (Calculated) ABG O2 Saturation ABG Carboxyhemoglobin ABG Methemoglobin Felice Test A-a O2 Difference Total Hemoglobin Lactate Liter Flow Blood Gas Modality FiO2 % Sodium Potassium Chloride Carbon Dioxide Anion Gap BUN Creatinine Estimated GFR/1.73 m2 BUN/Creatinine Ratio Glucose Calculated Osmolality Calcium Magnesium Total Bilirubin AST ALT Alkaline Phosphatase Creatine Kinase Troponin T < 0.010 [id number]-[id number] Pept 368 Total Protein Albumin Globulin Albumin/Globulin Ratio Plasma Lactate 08/09/16 08/09/16 15:30 17:25 WBC RBC Hgb Hct MCV MCH MCHC RDW Std Deviation Plt Count MPV Immature Gran % (Auto) Neut % (Auto) Lymph % (Auto) [place] % (Auto) Eos % (Auto) Baso % (Auto) Immature Gran # (Auto) Neut # (Auto) Lymph # (Auto) [place] # (Auto) Eos # (Auto) Baso # (Auto) PT INR PTT (Actin FS) D-Dimer Specimen Type ARTERIAL Sample Site L RADIAL pH 7.60 H* pCO2 28 L pO2 193 H HCO3 29.8 H Base Excess 6.2 H Oxyhemoglobin 96.3 ABG O2 Sat (Calculated) 15.1 ABG O2 Saturation 99.5 ABG Carboxyhemoglobin 1.30 ABG Methemoglobin 2.0 H Felice Test YES A-a O2 Difference 485.0 Total Hemoglobin 10.8 L Lactate 1.10 Liter Flow 15.0 Blood Gas Modality NRB FiO2 % 100.0 Sodium Potassium Chloride Carbon Dioxide Anion Gap BUN Creatinine Estimated GFR/1.73 m2 BUN/Creatinine Ratio Glucose Calculated Osmolality Calcium Magnesium Total Bilirubin AST ALT Alkaline Phosphatase Creatine Kinase Troponin T Rbe-X-Hanoivhnotw Pept Total Protein Albumin Globulin Albumin/Globulin Ratio Plasma Lactate 2.1 Orders Category Date Time Status Cardiac Monitoring DIRECTED Care 08/09/16 16:38 Active Oxygen Therapy- ED Nursing DIRECTED Care 08/09/16 16:38 Active Saline Loc NOW Care 08/09/16 16:38 Active ANGIOGRAM/PULMONARY ARTERIES [CT] Stat Exams 08/09/16 18:06 Ordered CHEST-2 VIEWS [RAD] Stat Exams 08/09/16 16:38 Draft ABG [RESP] Routine Lab 08/09/16 17:25 Completed BLOOD CULTURE [BLDCUL] Stat Lab 08/09/16 17:20 Received CBC WITH ELECTRONIC DIFF [HEME] Stat Lab 08/09/16 15:30 Completed CK PROFILE [SP CHEM] Stat Lab 08/09/16 15:30 Completed COMPREHENSIVE METABOLIC PANEL [CHEM] Stat Lab 08/09/16 15:30 Completed D-DIMER [CHEM] Stat Lab 08/09/16 15:30 Completed LACTATE, PLASMA [CHEM] Stat Lab 08/09/16 15:30 Completed MAGNESIUM [CHEM] Stat Lab 08/09/16 15:30 Completed PRO B-NATRIURETIC PEPTIDE Stat Lab 08/09/16 15:30 Completed PROTIME WITH INR [COAG] Stat Lab 08/09/16 15:30 Completed PTT [COAG] Stat Lab 08/09/16 15:30 Completed TROPONIN T Stat Lab 08/09/16 15:30 Completed Aspirin Med 08/09/16 16:38 Discontinued 325 mg PO STAT STA Furosemide [Lasix] Med 08/09/16 15:35 Discontinued 20 mg IV NOW ONE Piperacil/Tazobact 3.375 gm/Ns [Zosyn 3.375 gm/Ns] Med 08/09/16 18:00 Active 3.375 gm in 50 ml IV Q6H Vancomycin 1 gm/Ns Med 08/09/16 17:54 Active 1 gm in 250 ml IV NOW EKG [EKG] Stat Ther 08/09/16 16:38 Ordered 1750-pt is a patient, he will be paged. 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) Result Diagrams: 08/09/16 15:30 08/09/16 15:30 - EKG 1 Time of EKG reading by physician:: 15:53 EKG Read and Signed by:: Zhao Tee EKG Interpretation (*Must complete 3 of following elements*): Normal Rate: 95 Rhythm: NSR [place]: normal QRS: normal ND Interval: normal ST Wave: normal - XRAY 1 XRAY Study: Chest Impression: Abnormal XRAY Interpretation: RLL pneumonia - CONSULTS/PCP/HOSPITALIST Notification #1 *Consult/PCP/Hospitalist*: Time Discussed: 17:35 Reason/Comments: RLLpneumonia, dyspnea Consult Disposition: Will see in ED, Admit #2 Consult: 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 Advised to admit to hospital and he will see patient.) - CHANGE OF SHIFT REPORT (ED Provider) Items Pending: CT/MRI Results Departure - Departure Time of Disposition Decision: 17:35 DIAGNOSIS: RLL pneumonia, Dyspnea Disposition: ADMITTED INPATIENT 09 Certified Medical Emergency: Emergent Condition: Stable Referrals and Follow-Ups: Joanne Mccarthy MD [Primary Care Provider] - This chart was documented by the indicated scribe, (Johny Parish, Scribe) and accurately reflects the services I performed and decisions made by , Zhao Tee MD, as attested by the provider's signature.
[2016-08-09] MEDS ORDERED: OXY IR PO PRN (18:53)
[2016-08-09] MEDS ORDERED: ULTRAM PO PRN ×2 (18:53→23:18)
--- NOTE | 2016-08-09 20:21 | HISTORY AND PHYSICAL ---
The patient admitted to Dr. Eleazar Mccarthy. CHIEF COMPLAINT: Difficulty breathing. HISTORY OF PRESENT ILLNESS: The patient is a 75-year-old, white female, who was at rehab after having had repair of her fractured right hip here in the hospital a few days ago. Daughter was with her today and gave me a lot of the information, as the patient is demented from dementia associated with parkinsonism. The daughter says that she was having some difficulty breathing yesterday and had more difficulty today and apparently an O2 saturation get down to around 70% or so. An outpatient chest x-ray showed a right lower lobe pneumonia. With her shortness of breath, she was sent to the emergency room. In the emergency room it is noted that she is very demented and could not get a lot of history from her. She is not in any distress at this time and blood gas was fairly normal; however, she has got a right lower lobe pneumonia and has a D-dimer of 2.32. A CTA of the chest has been ordered, but not done yet by the emergency room physician. PAST HISTORY: The patient has had a total hysterectomy. She has had jaw surgery. She has had one child, a daughter. ALLERGIES: To sulfa and to phenobarbital, though the daughter said she was not aware of the phenobarbital; however, is listed on the chart as having a rash for that. HOME MEDICATIONS: Include Lexapro 20 mg daily, meclizine 25 mg at bedtime, Sinemet generic 1 p.o. b.i.d., 25/100 tablets, Aricept 10 mg daily, melatonin 10 mg p.o. at bedtime, Celebrex 200 mg daily, Colace 100 mg p.o. b.i.d., Pepcid 20 mg daily, I-Car C Plus one daily, OxyIR 5-10 mg p.o. q.3 hours p.r.n. pain, Lyrica 75 mg p.o. b.i.d., Xarelto 10 mg p.o. q. 24 hours, Ultram 50 mg p.o. q.6 hours p.r.n. pain, magnesium hydroxide 30 mL p.o. every other day, and MiraLAX 17 g p.o. every other day. REVIEW OF SYSTEMS: Is unobtainable, as the patient has too much dementia. SOCIAL HISTORY: The patient is a nonsmoker. PHYSICAL EXAMINATION: VITAL SIGNS: Temperature is 98.5 degrees Fahrenheit, pulse 103, respirations 27, blood pressure 175/80, O2 saturation is 100%. HEENT: She is normocephalic. Extraocular movements intact. Throat clear. TMs within normal limits. Fundi not seen well due to constriction of pupils. NECK: Supple without thyromegaly, lymphadenopathy, or carotid bruits. LUNGS: Have scattered rales, rhonchi, and some end-expiratory wheezing scattered throughout. Ocean best in the bases bilaterally. The chest x-ray shows more of a right lower lobe pneumonia. HEART: Regular rate and rhythm without murmurs, gallops, or friction rubs. ABDOMEN: Soft. Active bowel sounds. No organomegaly or tenderness. PELVIC EXAMINATION: Deferred. RECTAL EXAMINATION: Deferred. BREASTS EXAMINATION: Deferred. NEUROLOGICAL EXAMINATION: Patient is demented. She will try to answer questions and she is alert, but does not answer them appropriately. She is very stiff from her parkinsonism. Reflexes 1+ all. LABORATORY: Shows a white count 11,930, hemoglobin 12.4, platelet count 483,000. The D-dimer is 2.32. Sodium 140, potassium 4.0, chloride 96, BUN 18, creatinine 0.6, glucose was 125. AST was slightly up at 39, ALT normal at 14. The rest of liver enzymes normal. INR was 1.36. PT is 14.6, PTT 38.2. Troponin was less than 0.010. Pro-B-type natriuretic peptide was 368. Blood gas showed a pH of 7.60, pCO2 28, pO2 of 193, but that was on 100% FiO2. ADMITTING DIAGNOSIS: 1. Right lower lobe pneumonia with dyspnea. 2. Rule out pulmonary embolism. 3. Dementia. 4. Parkinsonism. PLAN: We will start on IV antibiotics. If the patient does have a pulmonary embolus, we will treat accordingly. cc: Rickey Reynoso Jr, MD
[2016-08-09] MEDS ORDERED: LYRICA PO SCH (21:00)
[2016-08-09] MEDS ORDERED: ANTIVERT PO SCH (21:00)
[2016-08-09] MEDS ORDERED: MELATONIN PO SCH (21:00)
[2016-08-09] MEDS ORDERED: COLACE PO SCH (21:00)
[2016-08-09] MEDS ORDERED: SINEMET 25/100 PO SCH (21:00)
[2016-08-09] MEDS ORDERED: TYLENOL PO PRN (23:13)
[2016-08-09] MEDS ORDERED: VANCOMYCIN IV PER PHARMACY MISC SCH (23:15)
[2016-08-10] MEDS ORDERED: VANCOMYCIN 350 MG in NS 100 ML IV ONE (01:00)
[2016-08-10] MEDS ORDERED: PNEUMOVAX 23 IM ONE (03:57)
[2016-08-10] MEDS: OXY IR PO PRN (04:54)
[2016-08-10] MEDS: ZOSYN 3.375 GM/NS 3.375 GM/50 ML IVPB IV SCH ×4 (04:54→22:10)
--- NOTE | 2016-08-10 05:22 | EKG Report ---
Test Performed on : 08/09/2016 3:53:51 PM Test Reason : Re-Order Blood Pressure : / mmHG Vent. Rate : 095 BPM Atrial Rate : 095 BPM P-R Int : 130 ms QRS Dur : 076 ms QT Int : 372 ms P-R-T Axes : 055 060 058 degrees QTc Int : 467 ms Normal sinus rhythm. Normal ECG When compared with ECG of 01-AUG-2016 17:55, No significant change was found Unconfirmed Result
[2016-08-10] MEDS ORDERED: XARELTO PO SCH (06:00)
[2016-08-10] MEDS: XARELTO PO SCH (06:08)
[2016-08-10] MEDS: MIRALAX PO SCH (08:45)
[2016-08-10] MEDS: PEPCID PO SCH (08:46)
[2016-08-10] MEDS: ICAR-C PLUS PO SCH (08:46)
--- NOTE | 2016-08-10 08:46 | PROGRESS NOTE ---
DATE: 08/10/2016 SUBJECTIVE: Interval history was reviewed. Patient was admitted by Dr. Reynoso last night. Basically, she just recently discharged after bipolar hemiarthroplasty of the right hip. Postoperative course was complicated by slightly anemia requiring iron infusion. The patient is doing well at [facility] and was admitted last night with shortness of breath, possible right lower lobe pneumonia. Patient had a CT scan of the abdomen and pelvis done. PAST MEDICAL HISTORY, PAST SURGICAL HISTORY AND MEDICINES: Reviewed. REVIEW OF SYSTEMS: General: The patient was lying in the bed and tilted head towards the right side. Barely speaking. The was there. The patient denies of any headache. No neck pain. Cardiopulmonary: No cough, no chest pain, no palpitations. GI: No nausea, vomiting, abdominal pain. No swelling of feet. Neurologic exam: No weakness. PHYSICAL EXAMINATION: Vital Signs: Afebrile and stable. She is on nasal cannula 4 L, satting 99%. Blood pressure is 146/67. General: Elderly female basically lying in the bed with underlying Parkinson disease. Not in respiratory distress. Chest: Poor air entry. Difficult exam. Heart: Sounds are regular. Belly is soft, nontender. Extremities: No peripheral edema. Able to move all the extremities. LABS/ X-RAYS: CT scan of the chest is pending. CBC: White cell count 11, hematocrit 37, platelets 483. PT 14, INR 1.3. D-dimer 2.32. ABG: The pH is 7.60, pCO2 28, PO2 193. SMA 7: Sodium 140, potassium 4.0, chloride 96, BUN 18, creatinine 0.6, glucose 125. Liver function tests were normal. Chest x-ray on 08/09/2016: Ill-defined infiltrate in the right upper pole. ASSESSMENT AND PLAN: 1. A 75-year-old white female, readmitted to the hospital with right lower lobe pneumonia, possible aspiration. The patient is on clear liquids. We will do the speech therapy evaluation. In the meantime, oxygen, intravenous vancomycin and Zosyn. 2. Status post bipolar hemiarthroplasty, stable. Positive D-dimer. Follow up on CT pulmonary angiogram. Rule out pulmonary embolism. 3. Deep venous thrombosis prophylaxis with Xarelto. 4. Parkinson disease on Sinemet 1 tablet oral twice daily. 5. Dementia on Aricept. Discussed with the family and the . Also, will discuss advanced directives. DOCUMENTATION TIME: 35 minutes. cc: Chavo Mccarthy MD
[2016-08-10] MEDS: LYRICA PO SCH ×2 (08:47→22:09)
[2016-08-10] MEDS: ARICEPT PO SCH (08:47)
[2016-08-10] MEDS: LEXAPRO PO SCH (08:47)
[2016-08-10] MEDS: SINEMET 25/250 PO SCH ×2 (08:47→23:29)
[2016-08-10] MEDS: COLACE PO SCH ×2 (08:47→22:10)
--- NOTE | 2016-08-10 08:48 | Diag Imaging Result Document ---
PROCEDURE NAME: ANGIOGRAM/PULMONARY ARTERIES - 08/09/2016 CT OF THE CHEST WITH INTRAVENOUS CONTRAST: FINDINGS: There is some motion and beam hardening artifact. There are no definite filling defects in the pulmonary arteries. There is apical pleural fibrosis bilaterally. There are patchy acinar-type effect airway opacities present in both upper lung zones. This is particularly severe on the right. There is a denser ground glass opacity present anteriorly in the right upper lobe around image 72 which measures almost 2 cm in diameter. There are similar opacities in the superior segments of both lower lobes. There is atelectasis and consolidation in the right lower lobe posteriorly and some ill-defined opacities also present in the left lower lobe. There is apparent fluid in the distal esophagus. The stomach is not distended in appearance and, otherwise, there is no definite evidence of acute disease in the visualized portion of the abdomen. There is some mild bronchiectasis in the lower lobes posteriorly. Secretions are including some of the bronchi to the right lower lobe. IMPRESSION: Patchy pneumonia/pneumonitis with apparent mucous plugging in the lower lobes particularly the right lower lobe. Mild bronchiectasis. The possibility of aspiration pneumonia cannot be excluded.
[2016-08-10] MEDS ORDERED: ARICEPT PO SCH (09:00)
[2016-08-10] MEDS ORDERED: PEPCID PO SCH (09:00)
[2016-08-10] MEDS ORDERED: MIRALAX PO SCH (09:00)
[2016-08-10] MEDS ORDERED: LEXAPRO PO SCH (09:00)
[2016-08-10] MEDS ORDERED: ICAR-C PLUS PO SCH (09:00)
[2016-08-10] MEDS: MELATONIN PO SCH (22:09)
[2016-08-10] MEDS: ANTIVERT PO SCH (22:10)
[2016-08-11 04:20] LABS: ALLEN TEST YES; BE 6.4 mmoll (-3.0-3.0); BLOOD TYPE ARTERIAL; DRAW SITE R RADIAL; METHB 1.7 % (0.0-1.5); O2(CT) 16.9 mL/dL (15.0-23.0); PCO2(98.6) 41 mmHg (35-45); PO2(98.6) 102 mmHg (60-100); SAMPLE BLOOD; SAO2 99.6 % (95.0-100.0); THB 12.4 g/dL (11.5-17.4); pH(98.6) 7.48 (7.35-7.45)
[2016-08-11 04:21] LABS: MODALITY CANNULA
[2016-08-11] MEDS: ZOSYN 3.375 GM/NS 3.375 GM/50 ML IVPB IV SCH ×4 (05:00→22:03)
[2016-08-11] MEDS: XARELTO PO SCH (05:32)
[2016-08-11 06:38] LABS: BASO% 0.2 % (0.0-0.8); EOS# 0.01 X1000 (0.0-0.7); EOS% 0.1 % (0.0-10.0); HEMOGLOBIN 8.9 g/dL (12.0-16.0); IMM GRAN# 0.04 X1000 (0.0-0.04); IMM GRAN% 0.3 % (0.0-0.5); LYMPH# 0.95 X1000 (1.2-3.4); LYMPH% 6.4 % (20.5-51.1); MANUAL DIFF NEEDED? YES; MCH 30.2 PG (27-31); MCV 91.5 FL (81-99); MONO# 0.55 X1000 (0.11-0.59); MONO% 3.7 % (1.7-9.3); MPV 9.7 FL (7.4-10.4); NEUT% 89.3 % (42.2-75.2); PLT 408 X1000 (130-400); RBC 2.95 XMIL (4.2-5.4)
[2016-08-11 07:00] LABS: AGAP 16; BUN 16 mg/dL (8-22); CALCIUM 9.5 mg/dL (8.8-10.2); CHLORIDE 105 mmol/L (98-107); COSMO 295; POTASSIUM 2.9 mmol/L (3.5-5.1); SODIUM 147 mmol/L (136-145); TCO2 26 mmol/L (25-35)
[2016-08-11 07:06] LABS: BANDS 8 % (0-1); LYMPHS 6 % (21-51); MONO 4 % (1-9)
--- NOTE | 2016-08-11 08:10 | Diag Imaging Result Document ---
PROCEDURE NAME: CHEST-PORTABLE - 08/11/2016 SEMIUPRIGHT PORTABLE CHEST: COMPARISON: 08/09/2016. FINDINGS: The lungs are well expanded. The heart is not enlarged. The vessels are not distended. I believe there are small infiltrates in the upper and lower right lung. The left lung is clear. No pleural effusions identified. IMPRESSION: I believe there are small right lung infiltrates.
[2016-08-11] MEDS: COLACE PO SCH ×2 (09:08→22:02)
[2016-08-11] MEDS: LEXAPRO PO SCH (09:10)
[2016-08-11] MEDS: LYRICA PO SCH ×2 (09:10→22:02)
[2016-08-11] MEDS: ICAR-C PLUS PO SCH (09:10)
[2016-08-11] MEDS: PEPCID PO SCH (09:10)
[2016-08-11] MEDS: MIRALAX PO SCH (09:10)
--- NOTE | 2016-08-11 09:15 | PROGRESS NOTE ---
DATE: 08/11/2016 SUBJECTIVE: Patient is doing poorly, not eating well. Speech therapy findings were noted and follow up on chest x-ray and CT consistent with aspiration pneumonia. REVIEW OF SYSTEMS: None reported. Patient is a little bit obtunded. The daughter was at the bedside. Advanced directives were discussed. PHYSICAL EXAMINATION: Vital Signs: Stable, afebrile and Parkinson's face. Chest: Some crackles on the right side. Heart: Sounds are regular. Abdomen: Belly is soft, nontender. Mckeon catheter was seen. Neurologic: No obvious deficits noted. Blood cultures were negative. Initially reported gram-positive cocci. We will follow up. LABS: White cell count 14, hematocrit 27, platelets 408,000, ABG pH is 7.48, pCO2 40, PO2 102, 36% SMA 7, sodium 147, potassium 2.9, chloride 105, BUN 16, creatinine 0.4, glucose 125, LFTs were normal. Pulmonary: Pulmonary angiogram. Patchy pneumonitis, mucous plugging in the lower lobes. Mild bronchiectasis, no pulmonary embolism noted. IMAGING: Chest x-ray right lower lobe pneumonia. ASSESSMENT AND PLAN: 1. Aspiration pneumonia. Follow up on speech therapy recommendations. 2. Continue IV antibiotics with vancomycin and Zosyn and follow up on blood cultures. 3. Deep venous thrombosis prophylaxis on Xarelto. 4. Parkinson's Disease stable. 5. Dehydration with hypokalemia and IV fluids. 6. Anemia. Will monitor stool occult blood and follow up on CBC and SMA 7 in the morning. 7. Right hip fracture. Recently repaired. 8. Advanced directives discussed; living will, DNR. cc: Chavo Mccarthy MD
[2016-08-11] MEDS: ARICEPT PO SCH (09:20)
[2016-08-11] MEDS: SINEMET 25/250 PO SCH ×2 (09:20→22:02)
[2016-08-11] MEDS: POTASSIUM CHLORIDE 20 MEQ/SWI 20 MEQ/100 ML IVPB IV SCH ×2 (10:00→12:31)
[2016-08-11] MEDS: POTASSIUM CHLORIDE 40 MEQ in 1/2 NS 1,000 ML IV SCH (10:01)
[2016-08-11] MEDS ORDERED: VANCOMYCIN 1,100 MG in NS 250 ML IV SCH (13:00)
[2016-08-11] MEDS: ANTIVERT PO SCH (22:01)
[2016-08-11] MEDS: MELATONIN PO SCH (22:03)
[2016-08-12] MEDS: XARELTO PO SCH (05:52)
[2016-08-12] MEDS: ZOSYN 3.375 GM/NS 3.375 GM/50 ML IVPB IV SCH ×4 (05:53→22:28)
[2016-08-12 06:31] LABS: BASO% 0.2 % (0.0-0.8); EOS# 0.14 X1000 (0.0-0.7); EOS% 0.8 % (0.0-10.0); HEMATOCRIT 29.8 % (37.0-47.0); HEMOGLOBIN 9.6 g/dL (12.0-16.0); IMM GRAN# 0.12 X1000 (0.0-0.04); IMM GRAN% 0.7 % (0.0-0.5); LYMPH% 11.5 % (20.5-51.1); MANUAL DIFF NEEDED? YES; MCH 29.3 PG (27-31); MCHC 32.2 g/dL (33-37); MCV 90.9 FL (81-99); MONO% 5.5 % (1.7-9.3); MPV 9.4 FL (7.4-10.4); NEUT% 81.3 % (42.2-75.2); PLT 481 X1000 (130-400); RBC 3.28 XMIL (4.2-5.4)
[2016-08-12] MEDS: POTASSIUM CHLORIDE 40 MEQ in 1/2 NS 1,000 ML IV SCH (06:40)
[2016-08-12 06:51] LABS: BANDS 4 % (0-1); EOS 2 % (1-10); LYMPHS 12 % (21-51); MONO 4 % (1-9)
[2016-08-12] MEDS: ICAR-C PLUS PO SCH (09:40)
[2016-08-12] MEDS: PEPCID PO SCH (09:40)
[2016-08-12] MEDS: SINEMET 25/250 PO SCH ×2 (09:40→20:41)
[2016-08-12] MEDS: FLEXERIL PO PRN ×2 (09:41→22:27)
[2016-08-12] MEDS: LEXAPRO PO SCH (09:41)
[2016-08-12] MEDS: MIRALAX PO SCH (09:41)
[2016-08-12] MEDS: ARICEPT PO SCH (09:41)
[2016-08-12] MEDS: LYRICA PO SCH ×2 (09:41→20:41)
[2016-08-12] MEDS: COLACE PO SCH ×2 (09:41→20:42)
--- NOTE | 2016-08-12 20:22 | PROGRESS NOTE ---
DATE: 08/12/2016 SUBJECTIVE: The patient looks better today, more alert, no complaints. She is able to swallow the liquids and pills with applesauce. The daughter was there at the bedside. Blood cultures 1/2 positive for coagulase-negative staph. REVIEW OF SYSTEMS: None reported. OBJECTIVE: Vitals: Afebrile, temperature is 97 degrees, blood pressure is 138/70, 4 L of oxygen 97%. HEENT: Within normal limits. Neck: Supple. Chest: Poor air entry. Heart: Sounds are regular. Abdomen: Belly is soft, nontender. Neurologic: No obvious neurological deficits. INVESTIGATIONS: White cell count 18, hematocrit 29.8, platelets 481,000. ABG: PH is 7.48, pCO2 41, PO2 102. SMA7: Sodium 147, potassium 2.9, chloride 105, BUN 16, creatinine 0.4, calcium 9.5. Blood cultures 1 of 2 positive for coagulase-negative Staph. Chest x-ray: There is a small right lung infiltrates. ASSESSMENT AND PLAN: 1. Right lower lobe aspiration pneumonia. Probably contaminant. Gram-positive, coagulase- negative Staph. Continue on intravenous Zosyn and vancomycin. 2. Deep venous thrombosis prophylaxis. On Xarelto. 3. Hypernatremic dehydration. We will continue on intravenous fluids with potassium 40 mEq. 4. Living will, Do Not Resuscitate. 5. Parkinsonism. Stable. Continue the present medical therapy over the weekend and reassess on Tuesday for disposition. cc: Chavo Mccarthy MD
[2016-08-12] MEDS: ANTIVERT PO SCH (20:41)
[2016-08-12] MEDS: MELATONIN PO SCH (20:41)
[2016-08-12] MEDS: POTASSIUM CHLORIDE 40 MEQ in NS 250 ML IV SCH (22:28)
[2016-08-13] MEDS: VANCOMYCIN 1 GM/NS 1 GM/250 ML IVPB IV SCH ×2 (01:05→15:06)
[2016-08-13] MEDS: POTASSIUM CHLORIDE 40 MEQ in 1/2 NS 1,000 ML IV SCH ×2 (03:42→03:43)
[2016-08-13] MEDS: ZOSYN 3.375 GM/NS 3.375 GM/50 ML IVPB IV SCH ×4 (04:31→22:02)
[2016-08-13 05:38] LABS: MANUAL DIFF NEEDED? NO
[2016-08-13 05:44] LABS: BASO% 0.2 % (0.0-0.8); EOS# 0.14 X1000 (0.0-0.7); EOS% 1.2 % (0.0-10.0); HEMATOCRIT 28.3 % (37.0-47.0); HEMOGLOBIN 9.4 g/dL (12.0-16.0); IMM GRAN# 0.16 X1000 (0.0-0.04); IMM GRAN% 1.3 % (0.0-0.5); LYMPH# 1.35 X1000 (1.2-3.4); LYMPH% 11.2 % (20.5-51.1); MCH 29.8 PG (27-31); MCHC 33.2 g/dL (33-37); MCV 89.8 FL (81-99); MONO% 6.6 % (1.7-9.3); MPV 9.3 FL (7.4-10.4); NEUT% 79.5 % (42.2-75.2); PLT 459 X1000 (130-400); RBC 3.15 XMIL (4.2-5.4)
[2016-08-13] MEDS: POTASSIUM CHLORIDE 40 MEQ in NS 250 ML IV SCH (06:12)
[2016-08-13] MEDS: XARELTO PO SCH (06:12)
[2016-08-13 06:13] LABS: AGAP 14; BUN 12 mg/dL (8-22); CHLORIDE 104 mmol/L (98-107); COSMO 283; POTASSIUM 3.9 mmol/L (3.5-5.1); SODIUM 142 mmol/L (136-145); TCO2 24 mmol/L (25-35)
[2016-08-13] MEDS: FLEXERIL PO PRN ×2 (09:01→17:56)
[2016-08-13] MEDS: LEXAPRO PO SCH (09:03)
[2016-08-13] MEDS: SINEMET 25/250 PO SCH ×2 (09:04→21:57)
[2016-08-13] MEDS: COLACE PO SCH ×2 (09:04→21:57)
[2016-08-13] MEDS: PEPCID PO SCH (09:05)
[2016-08-13] MEDS: ICAR-C PLUS PO SCH (09:05)
[2016-08-13] MEDS: ARICEPT PO SCH (09:05)
[2016-08-13] MEDS: LYRICA PO SCH ×2 (09:06→21:56)
[2016-08-13] MEDS: MIRALAX PO SCH (09:07)
[2016-08-13] MEDS: OXY IR PO PRN ×2 (10:02→17:59)
[2016-08-13] MEDS: CLINIMIX E 4.25%-5% SOLUTION 1,000 ML IV SCH (13:11)
[2016-08-13] MEDS: MELATONIN PO SCH (21:57)
[2016-08-13] MEDS: ANTIVERT PO SCH (21:57)
[2016-08-14] MEDS: VANCOMYCIN 1 GM/NS 1 GM/250 ML IVPB IV SCH (02:24)
[2016-08-14] MEDS: ZOSYN 3.375 GM/NS 3.375 GM/50 ML IVPB IV SCH ×4 (05:00→23:35)
[2016-08-14] MEDS: XARELTO PO SCH (05:23)
[2016-08-14] MEDS: POTASSIUM CHLORIDE 40 MEQ in 1/2 NS 1,000 ML IV SCH ×3 (05:36→23:35)
[2016-08-14] MEDS: CLINIMIX E 4.25%-5% SOLUTION 1,000 ML IV SCH ×3 (05:36→20:50)
[2016-08-14 05:52] LABS: BASO% 0.3 % (0.0-0.8); EOS# 0.24 X1000 (0.0-0.7); EOS% 2.2 % (0.0-10.0); HEMATOCRIT 29.4 % (37.0-47.0); HEMOGLOBIN 9.6 g/dL (12.0-16.0); LYMPH# 1.25 X1000 (1.2-3.4); LYMPH% 11.5 % (20.5-51.1); MCH 29.7 PG (27-31); MCHC 32.7 g/dL (33-37); MONO# 0.83 X1000 (0.11-0.59); MONO% 7.6 % (1.7-9.3); MPV 9.2 FL (7.4-10.4); NEUT% 78.4 % (42.2-75.2); PLT 472 X1000 (130-400); RBC 3.23 XMIL (4.2-5.4)
[2016-08-14 06:02] LABS: AGAP 11; BUN 11 mg/dL (8-22); CALCIUM 8.9 mg/dL (8.8-10.2); CHLORIDE 100 mmol/L (98-107); COSMO 274; POTASSIUM 3.4 mmol/L (3.5-5.1); SODIUM 137 mmol/L (136-145); TCO2 26 mmol/L (25-35)
[2016-08-14 06:21] LABS: MANUAL DIFF NEEDED? NO
--- NOTE | 2016-08-14 08:38 | Diag Imaging Result Document ---
PROCEDURE NAME: CHEST-PORTABLE - 08/14/2016 PORTABLE CHEST: COMPARISON: 08/11/2016. FINDINGS: The lungs are well expanded. The heart is not enlarged. The vessels are not distended. Increased density in the medial right base. No pleural effusions identified. IMPRESSION: Right lower lobe pneumonia. Interval worsening compared to prior exam.
[2016-08-14] MEDS: ICAR-C PLUS PO SCH (10:16)
[2016-08-14] MEDS: PEPCID PO SCH (10:16)
[2016-08-14] MEDS: LYRICA PO SCH ×2 (10:16→21:01)
[2016-08-14] MEDS: COLACE PO SCH ×2 (10:17→21:01)
[2016-08-14] MEDS: ARICEPT PO SCH (10:17)
[2016-08-14] MEDS: LEXAPRO PO SCH (10:17)
[2016-08-14] MEDS: SINEMET 25/250 PO SCH ×2 (10:17→21:22)
[2016-08-14] MEDS: MIRALAX PO SCH ×2 (10:19→10:55)
--- NOTE | 2016-08-14 10:22 | PROGRESS NOTE ---
DATE: 08/14/2016 SUBJECTIVE: The patient is not speaking. She has severe dementia. OBJECTIVE: Vital Signs: Blood pressure 157/64, respirations 18, pulse 85, temperature 99.1 degrees Fahrenheit, and O2 saturations 100% on nasal cannula. HEENT: She is normocephalic. EOMs intact. Neck: Supple. Lungs: Have scattered rales and rhonchi. Heart: Regular rate rhythm without murmurs, gallops, or friction rubs. Abdomen: Soft. Active bowel sounds. No organomegaly or tenderness. Neurological: Cranial nerves 2 through 12 intact grossly. Sensory motor intact. Reflexes 1+ all. RADIOGRAPHS: Chest x-ray still shows right lower lobe pneumonia. PLAN: Continue current treatment with antibiotics. The patient's was by the bedside, and I did discuss this with him as well. cc: MD Chavo Hudson Jr, MD
[2016-08-14] MEDS: FLEXERIL PO PRN (12:34)
[2016-08-14] MEDS ORDERED: ATIVAN IV PRN (15:28)
[2016-08-14] MEDS: VANCOMYCIN 1,200 MG in NS 250 ML IV SCH (16:33)
[2016-08-14] MEDS: ANTIVERT PO SCH (21:01)
[2016-08-14] MEDS: MELATONIN PO SCH (21:01)
[2016-08-15] MEDS: OXY IR PO PRN (02:07)
[2016-08-15] MEDS: VANCOMYCIN 1,200 MG in NS 250 ML IV SCH ×2 (03:09→16:14)
[2016-08-15] MEDS: XARELTO PO SCH (06:47)
[2016-08-15] MEDS: ZOSYN 3.375 GM/NS 3.375 GM/50 ML IVPB IV SCH ×3 (06:48→18:35)
[2016-08-15] MEDS: ARICEPT PO SCH (09:18)
[2016-08-15] MEDS: COLACE PO SCH ×2 (09:18→21:52)
[2016-08-15] MEDS: LEXAPRO PO SCH (09:19)
[2016-08-15] MEDS: ICAR-C PLUS PO SCH (09:19)
[2016-08-15] MEDS: LYRICA PO SCH ×2 (09:19→21:51)
[2016-08-15] MEDS: SINEMET 25/250 PO SCH ×2 (09:20→21:52)
[2016-08-15] MEDS: PEPCID PO SCH (09:20)
[2016-08-15] MEDS: MIRALAX PO SCH (09:20)
--- NOTE | 2016-08-15 10:54 | PROGRESS NOTE ---
DATE: 08/15/2016 SUBJECTIVE: The patient will wake up a little bit but is not responsive verbally. OBJECTIVE: Vital signs: Blood pressure 122/54, respirations 20, pulse 78, temperature 97.5 degrees Fahrenheit. HEENT: She is normocephalic. Lungs: Have a few rales anteriorly. This sounds a little better than yesterday. Heart: Regular rate and rhythm without murmurs, gallops, or friction rubs. Abdomen: Soft. Active bowel sounds. No organomegaly or tenderness. Neurological: Patient not responding much due to her dementia. LABORATORY DATA: White count 27057 from yesterday with a hemoglobin of 9.6. Potassium yesterday was 3.4, and the day before. 3.9. Urine appears to be cloudy and there had been some blood in it earlier. ASSESSMENT: She has a Mckeon catheter in. We will get a urinalysis and possible culture. With all her antibiotics, she could have a yeast infection. Also patient may need some supplemental potassium. We will repeat that. FINAL DIAGNOSES: 1. Pneumonia. 2. Dementia. 3. Possible urinary tract infection. 4. Mild hypokalemia. 5. Mild anemia. PLAN: As above. cc: MD Chavo Hudson Jr, MD
[2016-08-15 15:22] LABS: URINE MICRO REVIEW NEEDED? NO; URINE SOURCE CATH
[2016-08-15 15:26] LABS: BILIRUBIN URINE NEGATIVE (NEGATIVE); BLOOD URINE MODERATE (NEGATIVE); COLOR YELLOW; GLUCOSE URINE NEGATIVE (NEGATIVE); LEUKOCYTES URINE SMALL (NEGATIVE); NITRITE URINE NEGATIVE (NEGATIVE); PH URINE 6.5; PROTEIN URINE TRACE mg/dL (NEGATIVE); SP GRAVITY URINE 1.011; TURBIDITY URINE CLEAR (CLEAR); UR EPITHELIAL CELLS <10 /HPF (<10); URINE BACTERIA NEGATIVE /HPF; URINE CULTURE NEEDED? YES; URINE RBC TNTC /HPF (<10); UROBILINOGEN URINE NORMAL (NORMAL)
[2016-08-15] MEDS: CLINIMIX E 4.25%-5% SOLUTION 1,000 ML IV SCH (16:25)
[2016-08-15] MEDS: POTASSIUM CHLORIDE 40 MEQ in 1/2 NS 1,000 ML IV SCH (16:25)
[2016-08-15] MEDS: FLEXERIL PO PRN (21:47)
[2016-08-15] MEDS: ANTIVERT PO SCH (21:52)
[2016-08-15] MEDS: MELATONIN PO SCH (22:19)
[2016-08-16] MEDS: ZOSYN 3.375 GM/NS 3.375 GM/50 ML IVPB IV SCH ×4 (00:01→17:36)
[2016-08-16] MEDS: CLINIMIX E 4.25%-5% SOLUTION 1,000 ML IV SCH ×3 (03:16→12:02)
[2016-08-16] MEDS: VANCOMYCIN 1,200 MG in NS 250 ML IV SCH (03:48)
[2016-08-16 05:35] LABS: MANUAL DIFF NEEDED? NO
[2016-08-16 05:50] LABS: BASO% 0.6 % (0.0-0.8); EOS# 0.15 X1000 (0.0-0.7); EOS% 1.8 % (0.0-10.0); HEMATOCRIT 31.9 % (37.0-47.0); HEMOGLOBIN 10.7 g/dL (12.0-16.0); IMM GRAN# 0.29 X1000 (0.0-0.04); IMM GRAN% 3.5 % (0.0-0.5); LYMPH# 0.69 X1000 (1.2-3.4); LYMPH% 8.3 % (20.5-51.1); MCH 29.7 PG (27-31); MCHC 33.5 g/dL (33-37); MCV 88.6 FL (81-99); MONO# 0.79 X1000 (0.11-0.59); MONO% 9.5 % (1.7-9.3); MPV 9.4 FL (7.4-10.4); NEUT% 76.3 % (42.2-75.2); PLT 488 X1000 (130-400)
[2016-08-16 06:04] LABS: AGAP 18; BUN 21 mg/dL (8-22); CALCIUM 9.2 mg/dL (8.8-10.2); CHLORIDE 100 mmol/L (98-107); COSMO 283; SODIUM 140 mmol/L (136-145); TCO2 22 mmol/L (25-35)
[2016-08-16] MEDS: XARELTO PO SCH (06:07)
[2016-08-16] MEDS: LYRICA PO SCH ×2 (11:30→22:14)
--- NOTE | 2016-08-16 11:40 | Diag Imaging Result Document ---
PROCEDURE NAME: BA SWALLOW W/VIDEO SPEECH THER - 08/16/2016 MODIFIED BARIUM SWALLOW, 08/16/2016: COMPARISON: None. FINDINGS: With thin liquids, there was significant penetration and silent aspiration. There is also severe nasopharyngeal reflux. Pureed solid consistency was taken without aspiration. However, on all observations, there was global hypokinesis of the swallowing mechanism and overall poor coordination. IMPRESSION: Dysphagia as described above. Nasopharyngeal reflux. Full diet recommendations will be provided by the patient's speech pathologist.
[2016-08-16] MEDS: ARICEPT PO SCH (11:44)
[2016-08-16] MEDS: COLACE PO SCH ×2 (11:44→22:13)
[2016-08-16] MEDS: ICAR-C PLUS PO SCH (11:57)
[2016-08-16] MEDS: SINEMET 25/250 PO SCH ×2 (11:57→22:14)
[2016-08-16] MEDS: MIRALAX PO SCH (11:57)
[2016-08-16] MEDS: LEXAPRO PO SCH (11:58)
[2016-08-16] MEDS: PEPCID PO SCH (11:58)
[2016-08-16] MEDS: POTASSIUM CHLORIDE 40 MEQ in 1/2 NS 1,000 ML IV SCH (11:59)
--- NOTE | 2016-08-16 21:42 | PROGRESS NOTE ---
DATE: 08/16/2016 SUBJECTIVE: Over the weekend she was unable to eat. Most of the history was discussed with the patient's daughter and at bedside. The patient has been NPO for the last 72 hours due to aspiration. Follow- up chest x-ray has not improved. Patient remains bedridden. REVIEW OF SYSTEMS: None reported. PAST MEDICAL HISTORY, PAST SURGICAL HISTORY, MEDICATIONS: Reviewed. OBJECTIVE: General: On examination, patient is with Parkinson features without any resting tremor, not in respiratory distress. Vital Signs: Afebrile. Blood pressure is 138/72, 97% on nasal oxygen. Chest: Decreased breath sounds in the right base. Heart: Sounds are regular. Abdomen: Belly is soft, nontender. Mckeon catheter was seen and no edema noted. INVESTIGATIONS: CBC: White cell count 8.3, hematocrit 32, platelets 488,000, SMA 7, sodium 140, potassium 4.0, chloride 100, BUN 21, creatinine 0.9, glucose 112. Urine cultures were negative. Coag-negative staph 1/2. Chest x-ray on 08/14: Worsening right lower lobe pneumonia. ASSESSMENT AND PLAN: 1. Right lower lobe pneumonia. Possible aspiration. Hold feeding by NPO. We will do the modified barium swallow studies with speech therapist. 2. Nutrition through IV, PPN with Clinimix. 3. Right lower lobe pneumonia. Continue on IV Zosyn. 4. DVT prophylaxis, on Xarelto. 5. History of right hip arthroplasty stable. 6. Deconditioning with parkinsonism. 7. Disposition. Discussed with the family who wants to sent to rehabilitation. 8. Advanced directives: DNR. LEVEL OF DOCUMENTATION: 35 minutes. cc: Chavo Mccarthy MD
[2016-08-16] MEDS: ATIVAN IV PRN (22:12)
[2016-08-16] MEDS: ANTIVERT PO SCH (22:13)
[2016-08-16] MEDS: MELATONIN PO SCH (22:14)
[2016-08-17] MEDS: ZOSYN 3.375 GM/NS 3.375 GM/50 ML IVPB IV SCH ×4 (00:12→20:59)
[2016-08-17 06:08] LABS: MANUAL DIFF NEEDED? NO
[2016-08-17 06:09] LABS: BASO% 0.4 % (0.0-0.8); EOS# 0.12 X1000 (0.0-0.7); HEMOGLOBIN 10.1 g/dL (12.0-16.0); IMM GRAN# 0.14 X1000 (0.0-0.04); IMM GRAN% 1.2 % (0.0-0.5); LYMPH% 5.9 % (20.5-51.1); MCH 29.8 PG (27-31); MCHC 33.7 g/dL (33-37); MCV 88.5 FL (81-99); MONO# 0.95 X1000 (0.11-0.59); MPV 9.5 FL (7.4-10.4); NEUT% 83.5 % (42.2-75.2); PLT 550 X1000 (130-400); RBC 3.39 XMIL (4.2-5.4)
[2016-08-17 06:41] LABS: AGAP 15; BUN 22 mg/dL (8-22); CHLORIDE 102 mmol/L (98-107); COSMO 286; POTASSIUM 3.9 mmol/L (3.5-5.1); SODIUM 141 mmol/L (136-145); TCO2 24 mmol/L (25-35)
[2016-08-17] MEDS: XARELTO PO SCH (06:56)
[2016-08-17] MEDS ORDERED: VANCOMYCIN 1,200 MG in NS 250 ML IV SCH ×2 (09:00→10:00)
--- NOTE | 2016-08-17 10:46 | Diag Imaging Result Document ---
PROCEDURE NAME: CHEST-PORTABLE - 08/17/2016 PORTABLE CHEST X-RAY: COMPARISON: 08/14/2016. FINDINGS: There is stable dense consolidation of the right lower lobe with some air bronchograms. Heart size is normal. No pneumothorax or pleural effusion. IMPRESSION: No change in the right lower lobe consolidation/pneumonia.
--- NOTE | 2016-08-17 10:59 | PROGRESS NOTE ---
DATE: 08/17/2016 SUBJECTIVE: Interval history was reviewed. The patient had a modified speech evaluation yesterday. It showed a significant nasopharyngeal reflux, high risk for aspiration. Speech therapist recommended NPO including the medications. The patient was agitated last night and was given Ativan. The patient was sleeping this morning. EXAMINATION: Vital Signs: She is afebrile, tachycardic, blood pressure was stable. HEENT: Examination within normal limits. Chest: Decreased breath sounds on the right. Heart: Heart sounds are regular. The rest of the examination is stable. INVESTIGATIONS: White cell count 11, hematocrit 30, platelets 550,000. SMA 7: Sodium 140, potassium 3.9, chloride 102, BUN 22, creatinine 0.8. Speech therapy findings discussed with the patient's daughter and the family at bedside. ASSESSMENT AND PLAN: 1. Right lower lobe aspiration pneumonia, not improving. 2. Parkinson's disease, end-stage. 3. Right hip fracture, status post surgery. 4. Dysphagia due to Parkinson's disease. 5. Disposition and discussion with the family about the alternatives. Currently on intravenous proton pump inhibitor. The family is going to decide about possible percutaneous endoscopic gastrostomy placement versus GIP hospice care or rehab. 6. Agitation. Intravenous Ativan. Based on the family's decisions, further recommendations will be followed. Level of documentation, 25 minutes. cc: Chavo Mccarthy MD
[2016-08-17] MEDS: COLACE PO SCH ×2 (11:19→21:35)
[2016-08-17] MEDS: ARICEPT PO SCH (11:19)
[2016-08-17] MEDS: MIRALAX PO SCH (11:20)
[2016-08-17] MEDS: LEXAPRO PO SCH (11:20)
[2016-08-17] MEDS: PEPCID PO SCH (11:20)
[2016-08-17] MEDS: LYRICA PO SCH ×2 (11:20→21:35)
[2016-08-17] MEDS: ICAR-C PLUS PO SCH (11:20)
[2016-08-17] MEDS: SINEMET 25/250 PO SCH ×2 (11:21→21:35)
[2016-08-17] MEDS: ATIVAN IV PRN ×3 (11:51→18:29)
[2016-08-17] MEDS: POTASSIUM CHLORIDE 40 MEQ in 1/2 NS 1,000 ML IV SCH (12:04)
[2016-08-17] MEDS: CLINIMIX E 4.25%-5% SOLUTION 1,000 ML IV SCH (15:10)
[2016-08-17] MEDS: MELATONIN PO SCH (21:35)
[2016-08-17] MEDS: ANTIVERT PO SCH (21:35)
[2016-08-18] MEDS: ZOSYN 3.375 GM/NS 3.375 GM/50 ML IVPB IV SCH (05:09)
[2016-08-18] MEDS: XARELTO PO SCH (05:10)
[2016-08-18] MEDS: POTASSIUM CHLORIDE 40 MEQ in 1/2 NS 1,000 ML IV SCH (06:04)
[2016-08-18 06:31] LABS: MANUAL DIFF NEEDED? NO
[2016-08-18 06:38] LABS: BASO% 0.3 % (0.0-0.8); EOS# 0.18 X1000 (0.0-0.7); EOS% 1.2 % (0.0-10.0); HEMATOCRIT 27.3 % (37.0-47.0); HEMOGLOBIN 9.2 g/dL (12.0-16.0); IMM GRAN# 0.13 X1000 (0.0-0.04); IMM GRAN% 0.9 % (0.0-0.5); LYMPH# 0.98 X1000 (1.2-3.4); LYMPH% 6.7 % (20.5-51.1); MCH 30.4 PG (27-31); MCHC 33.7 g/dL (33-37); MCV 90.1 FL (81-99); MONO# 0.96 X1000 (0.11-0.59); MONO% 6.5 % (1.7-9.3); MPV 9.6 FL (7.4-10.4); NEUT% 84.4 % (42.2-75.2); PLT 535 X1000 (130-400); RBC 3.03 XMIL (4.2-5.4)
[2016-08-18 07:14] LABS: AGAP 14; BUN 24 mg/dL (8-22); CALCIUM 9.6 mg/dL (8.8-10.2); CHLORIDE 101 mmol/L (98-107); COSMO 281; POTASSIUM 3.9 mmol/L (3.5-5.1); SODIUM 138 mmol/L (136-145); TCO2 23 mmol/L (25-35)
[2016-08-18 07:53] VITALS: BP 158/76
[2016-08-18] MEDS ORDERED: DILAUDID IV PRN (08:19)
[2016-08-18] MEDS ORDERED: TRANSDERM-SCOP TD ONE (08:19)
--- NOTE | 2016-08-18 10:12 | PROGRESS NOTE ---
DATE: 08/18/2016 SUBJECTIVE: I had a family meeting this morning with the sarahdasebastian and the daughter. They were at bedside. The patient is in a moribund state. She is n.p.o. REVIEW OF SYSTEMS: Agitated, significant declining. OBJECTIVE: Vital signs: On examination, afebrile, tachycardic. Vitals are stable. HEENT: Resting. Chest: Bilateral air entry with crackles on the right side. Heart: Heart sounds are tachycardic. Neurological: She is not responding, not able to move the extremities. ASSESSMENT AND PLAN: Family decided to go inpatient GIP. Patient is active. Family agreed for DNR, hospice consult. Plan is discontinue IV fluids, IV antibiotics, all the oral medications, changing to pain control with Dilaudid, scopolamine patch, Ativan, oxygen, waiting for demise. Prognosis is dismal. LEVEL OF DOCUMENTATION: 25 minutes. cc: Chavo Mccarthy MD
[2016-08-21] MEDS ORDERED: TRANSDERM-SCOP TD SCH (08:30)
--- NOTE | 2016-08-26 06:20 | DISCHARGE SUMMARY ---
ADMISSION DATE: 08/09/2016 DISCHARGE DATE: 08/18/2016 FINAL DIAGNOSIS: Acute cardiopulmonary arrest due to aspiration pneumonia due to severe oropharyngeal dysphagia from underlying Parkinson disease. SECONDARY DIAGNOSES: 1. Parkinson disease. 2. Dementia. 3. Right lobe aspiration pneumonia. 4. Right hip arthroplasty. 5. Deconditioning. 6. Severe protein calorie malnutrition. BRIEF HISTORY: Please see the H and P that was done by Dr. Reynoso. In brief, she is a 75-year-old pleasant white female, who was originally under the hospice care. Had a fall at home, sustained injury to the right hip. Patient had a right hip arthroplasty done by Dr. Amor. Postoperative course was uneventful except anemia. She was discharged to the rehab. Patient was readmitted 5 days later to the hospital with shortness of breath. The patient was found to have pneumonia in the right lower lobe. CT pulmonary angiogram is negative for DVT. HOSPITAL COURSE: Patient was given oxygen, IV antibiotics with Zosyn, and bronchodilators. She was also given IV nutrition through the Clinimix. The patient has recurrent choking spells. She was completely bedridden. Subsequently modified barium swallow studies, patient had a significant nasopharyngeal reflux, and aspiration. Speech therapist recommended nothing by mouth. Other options were discussed with the family about PEG placement. The patient's family decided not to undergo for PEG. At that time, patient's care was transferred to a [facility] for palliative care. -9 cc: Chavo Mccarthy MD
== END 2016-08-18 09:00 | disposition hospice, inpatient (51) ==
LOC: ED 15:16 → 4N 21:13
PROVIDERS: ADMIT Internal Medicine; ATTEND Internal Medicine

== ENCOUNTER 2016-08-18 10:09 | Inpatient (IN) ==
[2016-08-18] MEDS: ATIVAN IV PRN ×2 (11:03→18:53)
[2016-08-18] MEDS: DILAUDID IV PRN ×2 (11:03→18:53)
[2016-08-18] MEDS: TRANSDERM-SCOP TD SCH (12:26)
[2016-08-18] MEDS ORDERED: DULCOLAX PR PRN (16:46)
[2016-08-18] MEDS ORDERED: DULCOLAX PR ONE (17:00)
[2016-08-19] MEDS: DILAUDID IV PRN ×2 (04:14→12:00)
[2016-08-19] MEDS: ATIVAN PO PRN ×2 (12:20→18:24)
[2016-08-19] MEDS: DILAUDID PO PRN ×3 (13:04→21:05)
[2016-08-19] MEDS: TYLENOL PR PRN (15:28)
--- NOTE | 2016-08-19 18:09 | PROGRESS NOTE ---
DATE: 08/19/2016 SUBJECTIVE: The patient is unresponsive, moribund state. Discussed with the patient's transferred to [facility] service. OBJECTIVE: Vital signs: Stable. General: Unresponsive, lying on the right side. Chest: Clear. Cardiovascular: Heart sounds are regular. The rest of the exam is benign. ASSESSMENT AND PLAN: This is a 75-year-old white female admitted to [facility] for palliative hospice care. The patient is comforting very well with present treatment with morphine , Ativan, and scopolamine patch. Waiting for demise. DNR. Follow up. LEVEL OF DOCUMENTATION: 15 minutes. cc: Chavo Mccarthy MD MTDD
[2016-08-20] MEDS: ATIVAN PO PRN ×4 (00:12→19:43)
[2016-08-20] MEDS: DILAUDID PO PRN ×3 (06:09→16:23)
--- NOTE | 2016-08-20 09:41 | PROGRESS NOTE ---
DATE: 08/20/2016 SUBJECTIVE: The patient is still in a moribund state. Lying on the left side. The daughter was at bedside. Patient is moaning, slightly, discomfort moving both legs. PHYSICAL EXAMINATION: Vitals: Low grade fever, stable. Physical exam no change. ASSESSMENT AND PLAN: Continue with the palliative care. Symptomatic management, waiting for demise and DNR. LEVEL OF DOCUMENTATION: Fifteen minutes. cc: Chavo Mccarthy MD
[2016-08-21] MEDS: DILAUDID IV PRN (03:47)
[2016-08-21] MEDS: TRANSDERM-SCOP TD SCH (10:09)
--- NOTE | 2016-08-21 10:41 | PROGRESS NOTE ---
DATE: 08/21/2016 A 75-year-old female. She appears terminal. She has Parkinson disease with severe dysphagia. Neck is twisted to the right side and she has developed aspiration pneumonia. She is only comfort measures. We will continue the current management. -1 cc: MD Chavo Jackson MD
[2016-08-21] MEDS: DILAUDID PO PRN (13:56)
[2016-08-21] MEDS: ATIVAN PO PRN (17:29)
[2016-08-22] MEDS: DILAUDID PO PRN (17:11)
[2016-08-22] MEDS: TYLENOL PR PRN (23:57)
--- NOTE | 2016-08-23 04:50 | PROGRESS NOTE ---
DATE: 08/22/2016 etting some sublingual medications. Her condition is about the same. She does not respond. Vital signs are stable. cc: MD Chavo Jackson MD
--- NOTE | 2016-08-23 09:18 | PROGRESS NOTE ---
DATE: 08/23/2016 SUBJECTIVE: The patient is in moribund state. Unresponsive. Not in respiratory distress. Comfortable. PHYSICAL EXAMINATION: Vital Signs: Low-grade fever. Vitals are stable. On oxygen, 2 L, 93%. Neurological: Basically not following with verbal commands. Genitourinary: Mckeon catheter was seen. ASSESSMENT: 1. End-stage Parkinson's disease. 2. Dementia. 3. Right aspiration pneumonia. PLAN: Discussed with the daughter. We will continue comfort care. Waiting for demise. Level of documentation 15 minutes. cc: Chavo Mccarthy MD
[2016-08-23] MEDS: ROXANOL CONC. LIQUID PO PRN (14:52)
[2016-08-23] MEDS ORDERED: LORAZEPAM ORAL CONCENTRATE PO PRN (17:58)
[2016-08-24] MEDS: ROXANOL CONC. LIQUID PO PRN ×4 (03:42→20:07)
[2016-08-24] MEDS: TRANSDERM-SCOP TD SCH (10:12)
--- NOTE | 2016-08-24 10:45 | PROGRESS NOTE ---
DATE: 08/24/2016 SUBJECTIVE: The patient has no IV access. She has increased work of breathing, moaning. OBJECTIVE: Vital signs are stable. Fever of 101. Tachycardic. She is lying on the left side. Mckeon catheter was placed. ASSESSMENT AND PLAN: GIP with Hospice care. Apparently no IV access. We will use Roxanol sublingual p.o. q.3 hours and scopolamine patch. Living will DNR. Waiting for demise. PROGNOSIS: Grave. The family was there at the time of visit. Level of documentation 15 minutes. cc: Chavo Mccarthy MD
[2016-08-24 15:07] VITALS: BP 76/42
[2016-08-24] MEDS: LUBRIFRESH PM OPH OINTMENT OPH SCH ×2 (17:32→20:07)
--- NOTE | 2016-08-26 06:23 | DISCHARGE SUMMARY ---
ADMISSION DATE: 08/18/2016 DISCHARGE DATE: 08/24/2016 FINAL DIAGNOSIS: Acute cardiopulmonary arrest due to aspiration pneumonia due to severe oropharyngeal dysphagia from underlying Parkinson disease. SECONDARY DIAGNOSES: 1. Parkinson disease. 2. Dementia. 3. Right lobe aspiration pneumonia. 4. Right hip arthroplasty. 5. Deconditioning. 6. Severe protein calorie malnutrition. HOSPITAL COURSE: Patient was transferred to [facility] on 08/18/2016. During this time, the patient was in moribund state. IV fluids were discontinued due to lack of IV access. Patient was given a scopolamine patch, Roxanol and Ativan. Mckeon catheter was in. Patient slowly deteriorated and peacefully on 08/24/2016 at 9:50 p.m. Family was there at the time of demise. The cause of the was due to cardiopulmonary arrest due to underlying Parkinson disease associated with aspiration pneumonia after right hip fracture. cc: Chavo Mccarthy MD
== END 2016-08-24 21:15 | disposition expired ==
LOC: 4N 10:09
PROVIDERS: ADMIT Internal Medicine; ATTEND Internal Medicine